=== PATIENT | female | born 1970 | race African-American/Black ===

== ENCOUNTER 2024-06-30 08:58 | Emergency (ER) | payer OTHER, SELFPAY ==
--- NOTE | ~2024-06-30 | XR_ITS ---
EXAMINATION: XR chest 2V 06/30/2024 09:23 INDICATION: Chest pain PROCEDURE: 2 view chest COMPARISON: No prior studies for comparison. FINDINGS: The lungs are clear. The cardiomediastinal silhouette is within normal limits. There are no pleural effusions. There is no pneumothorax suspected. IMPRESSION: 1: NO ACUTE CARDIOPULMONARY DISEASE. Reviewed, dictated and finalized at location A.
--- NOTE | 2024-06-30 09:04 | ECG_ITS ---
Test Date: 2024-06-30 09:07:04 Measurements Intervals [place] Rate: 76 P: 6 OK: 155 QRS: -12 QRSD: 77 T: 57 QT: 367 QTc: 415 Interpretive Statements SINUS RHYTHM NONSPECIFIC T-WAVE ABNORMALITY No previous ECG available for comparison Electronically Signed On 07-01-2024 18:57:39 CDT by Nina Villalobos
[2024-06-30 09:05] VITALS: BP 137/90; PULSE 78; RESP 18; TEMP 36.5; O2SAT 99
--- NOTE | 2024-06-30 09:14 | ED_ITS ---
HPI - Chest Pain General Chief Complaint: Chest Pain Stated Complaint: CP Source: patient Mode of arrival: ambulatory Limitations: no limitations History of Present Illness HPI narrative: Patient is a 54 y/o female who presents to the ED via EMS with report of chest pain. Patient reports she woke up around 4am this morning to take her dog out when she developed pain in her R sided chest. Reports pain is worse with movement, twisting, deep breaths. Described as a sharp stabbing pain. Has not taken anything for pain. Denies feeling short of breath. Denies history of similar pain. Denies pain or swelling in legs. Denies recent cough or cold symptoms. Denies previous history of heart disease. Is on medication for HTN, HLD. Former smoker. Related Data Allergies Allergy/AdvReac Type Severity Reaction Status Date / Time acetaminophen (From Percocet) Allergy Intermediate Hives Verified 06/30/24 09:09 oxycodone (From Percocet) Allergy Intermediate Hives Verified 06/30/24 09:09 Review of Systems 2 Review of Systems: All systems reviewed & are unremarkable except as noted in HPI. All systems reviewed & are unremarkable except as noted in HPI and below Exam 2 Narrative: GENERAL: Mildly uncomfortable appearing, morbidly obese with BMI of 43.5, non- toxic, in no acute distress. HEAD: Normocephalic, atraumatic. RESPIRATORY: Airway patent, respirations nonlabored. Clear to auscultation bilaterally, no rales, rhonchi, wheezing. No focal lung sounds. CARDIOVASCULAR: Regular rate and rhythm without murmurs, rubs, or gallops. MUSCULOSKELETAL: Moves all extremities. No gross deformities. Reproducible tenderness to palpation over right upper anterior chest wall, just lateral from sternum in 3rd through 5th intercostal spaces. No midsternal chest wall tenderness to palpation. SKIN: Warm, dry, normal color. NEURO: A&O X3. Speech clear. No ataxic movements. PSYCHIATRIC: Appropriate mood and affect. Normal interaction. Course Vital Signs Vital signs: Vital Signs Temperature 97.7 F 06/30/24 09:05 Pulse Rate 78 06/30/24 09:05 Respiratory Rate 18 06/30/24 09:05 Blood Pressure 137/90 06/30/24 09:05 Pulse Oximetry 99 06/30/24 09:05 Oxygen Delivery Room Air 06/30/24 09:05 Temperature 97.7 F 06/30/24 09:05 Pulse Rate 82 06/30/24 10:30 Respiratory Rate 12 06/30/24 10:30 Blood Pressure 130/84 06/30/24 10:30 Pulse Oximetry 95 06/30/24 10:30 Oxygen Delivery Room Air 06/30/24 09:05 MDM - Chest Pain MDM Narrative Medical decision making narrative: Patient presented to ED with right-sided chest pain that began this morning. Vital signs are stable upon arrival. EKG without concerning ischemic changes. Pain seems most likely musculoskeletal. Worse with movement or taking deep breath, reproducible chest wall tenderness along R upper chest wall on exam. Baseline Troponin is undetectable. Chest x-ray is clear. Basic laboratory studies are otherwise unremarkable. D-dimer WNL. 3 hour troponin also undetectable. Very low suspicion for ACS at this time. HEART score =3 based on age and RFs (HTN, HLD, BMI), however again pain does not seem typical of coronary disease/angina. Patient feeling improved with supportive therapy in the ED. Discussed likelihood of musculoskeletal etiology, costochondritis. Feel she is safe for discharge home at this time. Will prescribe muscle relaxers and lidocaine patches for home use. Advised close follow-up with PCP for further evaluation. Given strict return precautions. She agrees with plan. Discharged in stable condition. Medical Records Data Attestation: I reviewed the patient's medical records. Lab Data Attestation: I reviewed the patient's lab results. 06/30/24 09:12 06/30/24 09:12 Labs: Lab Results 06/30/24 06/30/24 06/30/24 Range/Units 09:12 09:12 11:52 WBC 8.4 (4.5-10.0) K/mm3 RBC 4.44 (4.2-5.4) M/mm3 Hgb 12.5 (12.0-15.0) g/dL Hct 40.0 (37.0-47.0) % MCV 90.1 (80-100) fl MCH 28.2 (26-34) pg MCHC 31.3 L (32-36) g/dl RDW 12.9 (11.5-14.5) % Plt Count 277 (150-375) k/mm3 MPV 8.7 (7.4-10.4) fl Immature Gran % (Auto) 0.2 (0-0.5) % Neut % (Auto) 60.3 (45.5-73.1) % Lymph % (Auto) 32.5 (18.3-44.2) % [place] % (Auto) 4.8 (2.6-8.5) % Eos % (Auto) 2.0 (0-4.4) % Baso % (Auto) 0.2 (0.2-1.2) % Lymph # (Auto) 2.71 (0.9-3.2) K/mm3 [place] # (Auto) 0.4 (0.1-0.6) K/mm3 Eos # (Auto) 0.2 (0-0.3) K/mm3 Baso # (Auto) 0.0 (0.0-0.1) K/mm3 Abs Immat Gran (auto) 0.02 (0.00-0.031) K/mm3 Absolute Neuts (auto) 5.0 (1.3-6.7) K/mm3 Absolute Nucleated RBC 0.000 (0.0-0.012) K/mm3 Nucleated RBC % 0.0 (0.0-0.2) % PT 12.7 (11.1-14.7) Seconds INR 0.9 APTT 20.0 L (22.3-36.8) Seconds D-Dimer 0.30 Cancelled (<0.48) ug/mL Sodium 141 (137-145) mmol/L Potassium 3.8 (3.4-5.0) mmol/L Chloride 107 (98-107) mmol/L Carbon Dioxide 24 (22-30) mmol/L Anion Gap 10 (4-12) mmol/L BUN 10 (7-17) mg/dL Creatinine 0.86 (0.7-1.0) mg/dL Estim Creat Clear Calc 76 ml/min Estimated GFR > 60 (59 - ) Glucose 125 H (65-110) mg/dL Calcium 9.2 (8.4-10.2) mg/dL Total Bilirubin 0.3 (0.2-1.3) mg/dL AST 26 (14-36) U/L ALT 21 (6-35) U/L Alkaline Phosphatase 92 (38-126) U/L Troponin I < 0.012 < 0.012 (0.000-0.034) ng/mL NT-Pro-B Natriuret Pep 63 (19.9-100) pg/mL Total Protein 8.0 (6.3-8.2) g/dL Albumin 4.1 (3.5-5.1) g/dL Lipase 295 (23-300) U/L Imaging Data Attestation: I personally reviewed and interpreted this imaging study as follows: Radiologist's impression: ITS Impressions Chest X-Ray 06/30/24 09:26 IMPRESSION: 1: NO ACUTE CARDIOPULMONARY DISEASE. ECG Data EKG #1: Attestation: I personally reviewed and interpreted this ECG as follows: ECG completion date: 06/30/24 ECG completion time: 09:07 EKG Interpretation: normal rate (76), sinus rhythm and no ST changes Discharge Plan Discharge Clinical Impression: Right-sided chest wall pain Patient Disposition: Home Condition: Stable Instructions: Antibiotic Form, Costochondritis (ED), Chest Wall Pain (ED) Additional Instructions: Your workup here was reassuring against a cardiac cause of your chest pain. Your pain is likely muscular. Continue Tylenol, ibuprofen as needed for pain. Utilize lidocaine patches to area of pain. You may also use ice to your chest wall. Take muscle relaxers as needed and prescribed. Recommend taking these at night as they may cause sedation. Do not drive, operate heavy machinery, drink alcohol while on muscle relaxers as this may cause further sedation. Follow-up with your primary care doctor for further evaluation. Return to the ED for worsening or severe pain, shortness of breath, pain or swelling in legs, unable to keep down food or drink, or any other symptoms of concern. Patient Language: Portuguese Prescriptions: New lidocaine 5 % adhesive patch,medicated 1 patch topical DAILY Qty: 15 0RF Rx Instructions: leave on most painful area for up to 12 hrs cyclobenzaprine 5 mg tablet 5 mg PO TID PRN (Reason: muscle spasm) Qty: 15 0RF Follow-up/Referrals: PHYSICIAN NOT ON STAFF,NONSTAFF [Non-Staff] - Time of Disposition: 12:47 Quality HEART score for chest pain patients History: slightly suspicious ECG: normal Age: > 45 and < 65 years Risk factors: > or = to 3 risk factors of atherosclerotic disease Troponin: < or = to 1x normal limit Heart score: 3
[2024-06-30 09:19] VITALS: PULSE 79
[2024-06-30 09:19] LABS: Basophils Percent Auto 0.2 % (0.2-1.2); Eosinophils Absolute Auto 0.2 K/mm3 (0-0.3); Hemoglobin 12.5 g/dL (12.0-15.0); Immature Granulocyte Absolute 0.02 K/mm3 (0.00-0.031); Immature Granulocyte Percent A 0.2 % (0-0.5); Lymphocytes Absolute Auto 2.71 K/mm3 (0.9-3.2); Lymphocytes Percent Auto 32.5 % (18.3-44.2); Mean Corpuscular HGB Conc 31.3 g/dl (32-36); Mean Corpuscular Hemoglobin 28.2 pg (26-34); Mean Corpuscular Volume 90.1 fl (80-100); Mean Platelet Volume 8.7 fl (7.4-10.4); Monocytes Absolute Auto 0.4 K/mm3 (0.1-0.6); Monocytes Percent Auto 4.8 % (2.6-8.5); Neutrophils Percent Auto 60.3 % (45.5-73.1); Platelet Count Result 277 k/mm3 (150-375); Red Blood Count 4.44 M/mm3 (4.2-5.4); Red Cell Distribution Width 12.9 % (11.5-14.5); White Blood Count 8.4 K/mm3 (4.5-10.0)
[2024-06-30] MEDS: Please add drug allergy info to patient profile. 1 EACH XX (09:20)
[2024-06-30 09:30] LABS: INR 0.9; Prothrombin Time 12.7 Seconds (11.1-14.7)
[2024-06-30] MEDS: LIDOCAINE 5% PATCH 1 PATCH TRANSDERM (09:34)
[2024-06-30] MEDS: CYCLOBENZAPRINE HCL 5 MG TABLET PO (09:34)
[2024-06-30] MEDS: ASPIRIN 81 MG CHEWABLE TABLET 324 MG PO (09:34)
[2024-06-30 09:36] LABS: Alanine Aminotransferase 21 U/L (6-35); Albumin Level 4.1 g/dL (3.5-5.1); Alkaline Phosphatase 92 U/L (38-126); Anion Gap 10 mmol/L (4-12); Aspartate Amino Transferase 26 U/L (14-36); Bilirubin,Total 0.3 mg/dL (0.2-1.3); Blood Urea Nitrogen 10 mg/dL (7-17); Calcium 9.2 mg/dL (8.4-10.2); Carbon Dioxide 24 mmol/L (22-30); Chloride 107 mmol/L (98-107); Estimated CRCL calculation 76 ml/min; Estimated Glomerular Filt Rate > 60; Glucose 125 mg/dL (65-110); Lipase 295 U/L (23-300); Potassium 3.8 mmol/L (3.4-5.0); Sodium 141 mmol/L (137-145)
--- OUTSIDE RECORDS SUMMARY | 2024-06-30 09:44 | XMS_ITS | Referral Summary ---
Author Organization [facility] Address [address] [place] [address] Care Team Providers Care Printing Estimator Name Role Phone George Harris MD, Deandre Styles Unavailable [phone] Neo RodriguezM Unavailable [phone] Shadia Aguilar MD Unavailable [phone] Macarena Donald MD Unavailable [phone] Esvin Ventura MD Primary Care Provider Shaka Carey MD Unavailable [phone] Encounters Date Type Department Care Team Description 06/10/2024 Telephone [facility] Primary Care at [address] [address] Esvin Ventura MD PA for Tramadol from Last 3 Months Allergies Active Allergy Reactions Criticality Noted Date Comments Hydrocodone Hives Reaction: Hives, Hydrocodone-Acetaminophen Oxycodone Hives,Itching Medium 05/13/2021 Medications cholecalciferol (VITAMIN D-3) 58539 unit tablet Take 1 tablet by mouth 2 (Two) Times a week 110 tablet 02/01/20 21 Active famotidine (PEPCID) 40 mg tabletIndications: Chronic cough Take 1 tablet by mouth nightly 90 tablet 11/08/19 23 Active lisinopril-hydroCH LOROthiazide (ZESTORETIC) 20-12.5 mg per tabletIndications: hypertension Take 1 tablet by mouth daily 180 tablet 3 12/17/19 23 Active escitalopram (LEXAPRO) 20 mg tabletIndications: Generalized anxiety disorder,Moderate episode of recurrent major depressive disorder (HCC) Take 1 tablet (20 mg total) by mouth daily 90 tablet 3 10/26/19 24 Active hydrOXYzine (ATARAX) 25 mg tabletIndications: Generalized anxiety disorder TAKE 1 TABLET BY MOUTH EVERY 8 HOURS NEEDED FOR ANXIETY. 300 tablet 1 02/22/20 24 Active atorvastatin (LIPITOR) 40 mg tabletIndications: Mixed hyperlipidemia Take 1 tablet (40 mg total) by mouth daily 90 tablet 3 03/29/19 25 Active amLODIPine (NORVASC) 5 mg tabletIndications: Hypertension, essential Take 1 tablet (5 mg total) by mouth daily 90 tablet 1 03/29/19 25 026 Active Breo Ellipta 100-25 mcg/dose diskus inhalerIndications :Chronic cough INHALE 1 PUFF DAILY RINSE MOUTH WITH WATER AFTER USE. DO NOT SWALLOW. 60 each 2 04/28/19 25 Active traMADoL (ULTRAM) 50 mg tabletIndications: Chronic right-sided low back pain with right-sided sciatica TAKE 1 TABLET (50 MG TOTAL) BY MOUTH 2 (TWO) TIMES A DAY NEEDED FOR PAIN FOR PAIN 60 tablet 06/10/19 25 Active cyclobenzaprine (FLEXERIL) 10 mg tabletIndications: Chronic right-sided low back pain with right-sided sciatica TAKE 1 TABLET BY MOUTH DAILY NEEDED FOR MUSCLE SPASMS. 90 tablet 06/25/19 25 Active traMADoL (ULTRAM) 50 mg tabletIndications: Chronic right-sided low back pain with right-sided sciatica Take 1 tablet (50 mg total) by mouth 2 (two) times a day as needed for pain for pain 60 tablet 02/05/20 24 025 Discontinued cyclobenzaprine (FLEXERIL) 10 mg tabletIndications: Chronic right-sided low back pain with right-sided sciatica TAKE 1 TABLET BY MOUTH DAILY NEEDED FOR MUSCLE SPASMS. 90 tablet 02/22/20 24 025 Discontinued Active Problems Problem Noted Date Diagnosed Date Tinnitus, bilateral 06/26/2023 Assessment & Plan (06/26/2023 8:41 AM CDT): - seen by ENT provider in April of 2023 - had hearing evaluation for bilateral tinnitus - also evaluated for dry skin that caused itching ears - told to follow-up on as needed was diagnosed with dysfunction of eustachian tubes History of fasciotomy 06/26/2023 Overview (06/26/2023): Hx of left plantar fasciotomy and Hx of left tarsal tunnel syndrome surgery Assessment & Plan (06/26/2023 8:41 AM CDT): - has history of left plantar fasciotomy and history of left tarsal tunnel surgery - done by Podiatry-Dr. Rodriguez - used to be on Lyrica/pregabalin for neuropathy - no longer an ongoing issue History of syncope 06/26/2023 Assessment & Plan (06/26/2023 8:44 AM CDT): - patient reports history of syncope with onset over 15 years ago, reports at the time she was extensively evaluated without any significant findings - she reports triggers are usually she feels very hot where she would feel sweaty and may pass out, also she does not eat then she will be shaky - there is no history of diabetes or prediabetes, heart disorder and has had a heart monitor as well as echocardiogram in the past - last episode was 3-4 years ago - safe to proceed with plasma donation Lab Results Component Value Date HGBA1C 5.6 04/02/2022 Benign paroxysmal positional vertigo due to bilateral vestibular disorder 02/12/2023 Assessment & Plan (02/12/2023 1:33 PM MONITORING SPECIALIST): May try meclizine for vertigo. She also has hydroxyzine for anxiety and I told her if the meclizine isn't helpful she could try the hydroxyzine. Encouraged adequate fluid intake. Take care walking and doing activities while dizzy. If symptoms do not resolve on their own then discussed Miguel Angel-Hallpike whole maneuvers through referral to either ENT, physical therapy or sometimes a chiropractor performs these. Patient voiced understanding and she may talked to a chiropractor that she is seen in the past S/P cholecystectomy 04/03/2022 S/P endometrial ablation 04/03/2022 Preventative health care 02/13/2022 Assessment & Plan (09/16/2022 4:56 PM CDT): - Acute/new or worsening conditions: worsening chronic cough, dyslipidemia - Mental health: stable mental health, has hx of depression which is well controlled - Dental health: up to date, Recommend regular dental care and cleaning. Discussed importance of regular tooth brushing, flossing, and dental visits. - Nutrition: Stressed importance of moderation in sodium/caffeine intake, saturated fat and cholesterol, caloric balance, sufficient intake of fresh fruits, vegetables - Exercise: Stressed the importance of regular exercise as tolerated - Immunizations: Age and sex appropriate immunizations reviewed - Cervical Cancer screening: up to date - Breast Cancer screening: up to date - Colon cancer screening: up to date - Lung cancer screening: n/a - control: post-menopausal Assessment & Plan (02/13/2022 12:29 PM MONITORING SPECIALIST): Patient has been noted to have mcfp current use of NSAIDs. Discussed that NSAIDs have been associated with: - increase in risk of GI bleeding and peptic ulcer - cause fluid retention and worsen congestive heart failure - worsen kidney function I recommend the following: - Using the lowest dose for the shortest possible duration - if possible switch NSAID with a different form of medication - Review patient s renal function and adjust dose accordingly - Adding a proton pump inhibitor (PPI) for GI protection for NSAID therapy >7 days - avoid using prednisone at same time as NSAIDs COPD (chronic obstructive pulmonary disease) Assessment & Plan (03/29/2024 2:14 PM MONITORING SPECIALIST): - chronic, well controlled - was chronic smoker, has cut down on her smoking and switched to vaping, cutting down on vaping - using albuterol inhaler 2-3 times a day - currently Breo Elipta 100-25 daily with big improvement - seh has been taking Zyrtec and flonase - has had Chest XR with normal findings in the past - obtained PFT with result as shown below The current medical regimen is effective; continue present plan and medications. PFT 10/22 The patient has adequate technique for interpretation. The patient has a moderate obstructive ventilatory defect which improves following bronchodilators. The patient has a mild restrictive ventilatory defect. The patient has a normal diffusing capacity. FEV1/FVC % (normal >70%) - FEV1 % ( normal >80%) - FVC (normal >80%) - TLC (normal between 80-120%) - DLCO (normal <80%) - In the presence of a low FEV1/FVC, GOLD 1: Mild (FEV1 >=80% predicted) GOLD 2: Moderate (50% predicted <=FEV1 <80% predicted) GOLD 3: Severe (30% predicted <=FEV1 <50% predicted) GOLD 4: Very severe (FEV1 <30% predicted) Assessment & Plan (04/23/2023 8:23 AM MONITORING SPECIALIST): - chronic, much better since she has been on inhaler - was worse at night as well - was chronic smoker, has cut down on her smoking and switched to vaping, cutting down on vaping - using albuterol inhaler 2-3 times a day - currently Breo Elipta 100-25 daily with big improvement - [facility] has been taking Zyrtec and flonase - has had Chest XR with normal findings in the past - obtained PFT with result as shown below - continue current therapy PFT 10/22 The patient has adequate technique for interpretation. The patient has a moderate obstructive ventilatory defect which improves following bronchodilators. The patient has a mild restrictive ventilatory defect. The patient has a normal diffusing capacity. FEV1/FVC % (normal >70%) - FEV1 % ( normal >80%) - FVC (normal >80%) - TLC (normal between 80-120%) - DLCO (normal <80%) - In the presence of a low FEV1/FVC, GOLD 1: Mild (FEV1 >=80% predicted) GOLD 2: Moderate (50% predicted <=FEV1 <80% predicted) GOLD 3: Severe (30% predicted <=FEV1 <50% predicted) GOLD 4: Very severe (FEV1 <30% predicted) Assessment & Plan (12/16/2022 8:24 AM CDT): - chronic, persistent/worse - worse at night as well - taking Famotidine 40 mg nighty for 1 months to see if symptoms improve - was chronic smoker, has cut down on her smoking and switched to vaping, cutting down on vaping - using albuterol inhaler 2-3 times a day - seh has been taking Zyrtec and flonase - has had Chest XR with normal findings in the past - obtained PFT with result as shown below 10/22 - started Anoro for COPD --> but found it to be too expensive 130 dollars. Eventually states it made her cough more - start Symbicort, script sent in PFT 10/22 The patient has adequate technique for interpretation. The patient has a moderate obstructive ventilatory defect which improves following bronchodilators. The patient has a mild restrictive ventilatory defect. The patient has a normal diffusing capacity. FEV1/FVC % (normal >70%) - FEV1 % ( normal >80%) - FVC (normal >80%) - TLC (normal between 80-120%) - DLCO (normal <80%) - In the presence of a low FEV1/FVC, GOLD 1: Mild (FEV1 >=80% predicted) GOLD 2: Moderate (50% predicted <=FEV1 <80% predicted) GOLD 3: Severe (30% predicted <=FEV1 <50% predicted) GOLD 4: Very severe (FEV1 <30% predicted) Assessment & Plan (09/16/2022 5:08 PM CDT): - chronic, persistent/worse - worse at night as well - try Famotidine 40 mg nighty for 1 months to see if symptoms improve - was chronic smoker, has cut down on her smoking and switched to vaping, cutting down on vaping - seh has been taking Zyrtec and flonase - has had Chest XR with normal findings in the past - obtain PFT if symptoms do not resolve or improve with pepcid use, order placed Assessment & Plan (02/13/2022 12:32 PM MONITORING SPECIALIST): - chronic, improved - almost 6 months - tried pepcid 20 mg BID - was chronic smoker, has cut down on her smoking for almost 3 weeks now, vaping instead - has seen big improvement in her cough - obtain Chest Xr Uterine mass 02/13/2022 Assessment & Plan (05/15/2022 8:17 AM CDT): - chronic, note din past on 2017 - obtained placed for US Transvaginal and then followed it with Abdomen and Pelvis CT - intermittent RLQ pain - ordered - US pelvis endovaginal to be done in 6 months with diagnosis of uterine mass. US Pelvis endovaginal 04/2021 IMPRESSION: 1. Assessment is somewhat limited partially related to the body habitus. 2. Endometrium is not seen, there is a history of endometrial ablation. There is a mass of the upper uterus near the fundus presumably a fibroid. Please ensure there are no worrisome clinical features such as postmenopausal bleeding. Consider a 6 month ultrasound follow-up for reassessment. 3. Neither ovary could be demonstrated for assessment. Limited findings, ordering CT Abd Pelvis with contrast CT Abd/Pelvis W Contrast 04/24 FINDINGS: LOWER CHEST: Lung bases are clear. Heart size normal. No effusion. LIVER/BILIARY: Mild hepatic steatosis. Biliary tree normal in caliber. GALLBLADDER: Absent. SPLEEN: Normal. PANCREAS: Normal. ADRENAL GLANDS: Normal. KIDNEYS/URINARY TRACT: Unremarkable. GI: Stomach and small bowel appear normal. Colon and appendix unremarkable. ADDENDUM: This addendum report supersedes the original report dated 04/23/2022 Uterus and ovaries appear normal. OTHER ABDOMINAL/PELVIS: Major vascular structures are grossly patent and normal in caliber. No enlarged lymph node or free fluid. MSK: [id number] disc disease and facet arthropathy. Hip and SI joint arthrosis. IMPRESSION: 1. No abnormality identified of the pelvic viscera within limits of CT visualization. 2. Mild hepatic steatosis. CT Abd/Pelvis 11/2017 IMPRESSION: 1. NO ACUTE INTRA-ABDOMINAL OR INTRAPELVIC ABNORMALITY. 2. 18 MM SIMPLE RIGHT OVARIAN CYST AND 15 MM SIMPLE LEFT OVARIAN CYST. 3. CHOLECYSTECTOMY. 4. FATTY INFILTRATION OF THE LIVER.. Assessment & Plan (02/13/2022 12:49 PM MONITORING SPECIALIST): - chronic, note din past on 2017 - recheck, order placed for US Transvaginal - intermittent RLQ pain CT Abd/Pelvis 11/2017 IMPRESSION: 1. NO ACUTE INTRA-ABDOMINAL OR INTRAPELVIC ABNORMALITY. 2. 18 MM SIMPLE RIGHT OVARIAN CYST AND 15 MM SIMPLE LEFT OVARIAN CYST. 3. CHOLECYSTECTOMY. 4. FATTY INFILTRATION OF THE LIVER.. Fatty liver 02/13/2022 Assessment & Plan (04/23/2023 8:20 AM MONITORING SPECIALIST): - chronic, noted in past as shown below - has morbid obesity, Body mass index is 45.88 kg/m . - obtained US liver as shown below - most recent LFTs as shown below - test result as shown below - discussed importance of weight loss - will continue to monitor Fibro test -acti test 12/22 Fibro test Stage F0 - no fibrosis Acti test Grade A0 - no activity US Liver 04/2022 FINDINGS: LIVER: The liver is increased in echogenicity. Liver measures 13 cm. No focal hepatic lesions are seen. Antegrade direction of flow shown in the main portal vein. GALLBLADDER: Surgically absent. BILIARY: There is no intrahepatic biliary ductal dilatation. The common bile duct measures 0.3 cm in diameter. RIGHT KIDNEY: Right kidney is 10.3 cm in length. There is no hydronephrosis. The echogenicity is normal. IMPRESSION: 1. Hepatic steatosis. 2. Cholecystectomy. 3. Otherwise negative right upper quadrant ultrasound. CT Abd/Pelvis 11/2017 IMPRESSION: 1. NO ACUTE INTRA-ABDOMINAL OR INTRAPELVIC ABNORMALITY. 2. 18 MM SIMPLE RIGHT OVARIAN CYST AND 15 MM SIMPLE LEFT OVARIAN CYST. 3. CHOLECYSTECTOMY. 4. FATTY INFILTRATION OF THE LIVER.. Most recent LFTs as shown below Lab Results Component Value Date ALT 18 02/12/2023 AST 21 02/12/2023 ALKPHOS 108 02/12/2023 BILITOT 0.3 02/12/2023 Lab Results Component Value Date INR 1.00 12/16/2022 INR 1.11 10/05/2018 Assessment & Plan (12/16/2022 8:27 AM CDT): - chronic, noted in past as shown below - has morbid obesity, Body mass index is 43.16 kg/m . - obtained US liver as shown below - most recent LFTs as shown below - order placed for CMP and Fibro Test-Acti - discussed importance of weight loss US Liver 04/2022 FINDINGS: LIVER: The liver is increased in echogenicity. Liver measures 13 cm. No focal hepatic lesions are seen. Antegrade direction of flow shown in the main portal vein. GALLBLADDER: Surgically absent. BILIARY: There is no intrahepatic biliary ductal dilatation. The common bile duct measures 0.3 cm in diameter. RIGHT KIDNEY: Right kidney is 10.3 cm in length. There is no hydronephrosis. The echogenicity is normal. IMPRESSION: 1. Hepatic steatosis. 2. Cholecystectomy. 3. Otherwise negative right upper quadrant ultrasound. CT Abd/Pelvis 11/2017 IMPRESSION: 1. NO ACUTE INTRA-ABDOMINAL OR INTRAPELVIC ABNORMALITY. 2. 18 MM SIMPLE RIGHT OVARIAN CYST AND 15 MM SIMPLE LEFT OVARIAN CYST. 3. CHOLECYSTECTOMY. 4. FATTY INFILTRATION OF THE LIVER.. Most recent LFTs as shown below Lab Results Component Value Date ALT 22 04/02/2022 AST 20 04/02/2022 ALKPHOS 105 04/02/2022 BILITOT 0.6 04/02/2022 Lab Results Component Value Date INR 1.11 10/05/2018 Assessment & Plan (05/15/2022 8:14 AM CDT): - chronic, noted in past as shown below - has morbid obesity, There is no height or weight on file to calculate BMI. - obtained US liver as shown below - most recent LFTs as shown below US Liver 04/2022 FINDINGS: LIVER: The liver is increased in echogenicity. Liver measures 13 cm. No focal hepatic lesions are seen. Antegrade direction of flow shown in the main portal vein. GALLBLADDER: Surgically absent. BILIARY: There is no intrahepatic biliary ductal dilatation. The common bile duct measures 0.3 cm in diameter. RIGHT KIDNEY: Right kidney is 10.3 cm in length. There is no hydronephrosis. The echogenicity is normal. IMPRESSION: 1. Hepatic steatosis. 2. Cholecystectomy. 3. Otherwise negative right upper quadrant ultrasound. CT Abd/Pelvis 11/2017 IMPRESSION: 1. NO ACUTE INTRA-ABDOMINAL OR INTRAPELVIC ABNORMALITY. 2. 18 MM SIMPLE RIGHT OVARIAN CYST AND 15 MM SIMPLE LEFT OVARIAN CYST. 3. CHOLECYSTECTOMY. 4. FATTY INFILTRATION OF THE LIVER.. Most recent LFTs as shown below Lab Results Component Value Date ALT 22 04/02/2022 AST 20 04/02/2022 ALKPHOS 105 04/02/2022 BILITOT 0.6 04/02/2022 Lab Results Component Value Date INR 1.11 10/05/2018 Assessment & Plan (02/13/2022 12:48 PM MONITORING SPECIALIST): - chronic, noted in past as shown below - has morbid obesity, Body mass index is 41.69 kg/m . - recheck, order placed for US liver CT Abd/Pelvis 11/2017 IMPRESSION: 1. NO ACUTE INTRA-ABDOMINAL OR INTRAPELVIC ABNORMALITY. 2. 18 MM SIMPLE RIGHT OVARIAN CYST AND 15 MM SIMPLE LEFT OVARIAN CYST. 3. CHOLECYSTECTOMY. 4. FATTY INFILTRATION OF THE LIVER.. Lab Results Component Value Date ALT 15 09/09/2021 AST 19 09/09/2021 ALKPHOS 146 (H) 09/09/2021 BILITOT 0.3 09/09/2021 Stress incontinence in female 02/13/2022 Palpitations 05/20/2021 Assessment & Plan (12/08/2023 12:15 PM CDT): Resolved. Assessment & Plan (02/13/2022 12:35 PM MONITORING SPECIALIST): - chronic, intermittent - saw Cardiology and reassurance was provided - told to limit caffeine intake, has known anxiety 2D echocardiogram 10/2021 - EF 60%, mild MR/TR - continue current management per cardiology - 48 hours monitor 04/2021 Conclusions: 1. Predominant rhythm is normal sinus rhythm with a minimum heart rate of 69 beats per minute in sinus and a maximum heart rate of 149 beats per minute also in sinus. 2. Heart rate and rate variability is appropriate. 3. No prolonged pauses. 4. Rare PACs with a total of 12 PACs amounting to less than 0.01% of total beats. 5. There were 28 patient activated events for lightheadedness and they were noted to be in sinus rhythm ranging in heart rate from 88-130 beats per minute with no significant findings. Lab Results Component Value Date TSH 1.51 09/09/2021 Assessment & Plan (09/10/2021 7:47 AM CDT): HPI: Condition is stable , they are not nearly as bad. They are sporadic. Sees Dr. Donald next week. A&P: Discussed/ordered labs, encouraged healthy, low carbohydrate lifestyle and at least 150min/week of exercise, continue follow-up with Dr. Donald cardiology Continue decreasing caffeine Assessment & Plan (05/20/2021 7:29 AM CDT): HPI: Condition is improving, but not at goal. Patient reports the palpitations occur split second, but have been getting better. Reports she trialed off caffeine with not much improvement, but is using it again. A&P: Discussed/ordered labs, encouraged healthy, low carbohydrate lifestyle and at least 150min/week of exercise. Push water intake. Follow-up with Dr. Donald cardiology as directed. Reports she has an appointment in 4 months. Smokes tobacco daily 03/06/2021 Assessment & Plan (04/23/2023 8:22 AM MONITORING SPECIALIST): Social History Tobacco Use Smoking Status Former Current packs/day: 0.00 Average packs/day: 0.5 packs/day for 34.6 years (17.3 ttl pk-yrs) Types: Cigarettes, Vaping Start date: 06/18/1987 Quit date: 01/15/2022 Years since quittin.2 Smokeless Tobacco Never - chronic condition, not at goal - continue with abstinence from tobacco smoking - currently vapes Assessment & Plan (02/13/2022 12:21 PM MONITORING SPECIALIST): Social History Tobacco Use Smoking Status Every Day Packs/day: 0.50 Years: 30.00 Pack years: 15.00 Types: Cigarettes Start date: 03/02/1982 Smokeless Tobacco Never - chronic condition, not at goal - assessed patient readiness for tobacco smoking cessation - discussed the importance of tobacco smoking cessation with goal of being tobacco free Assessment & Plan (09/10/2021 7:49 AM CDT): Patient aware of risks of tobacco use up to and including Patient does have interest in quitting at this time Has smoked about half pack per day for 32 years Down to 3-4 per day Assessment & Plan (03/06/2021 7:32 AM MONITORING SPECIALIST): Patient aware of risks of tobacco use up to and including Patient does not have interest in quitting at this time Smokes about 1/2ppd x 32 yrs Family history of abdominal aortic aneurysm (AAA ) 03/06/2021 Overview (03/06/2021): Mother and grandfather both have AAA Mothers found at age 66 or 67 Assessment & Plan (09/10/2021 7:47 AM CDT): Encouraged tobacco cessation Keep blood pressure under tight control Wt loss will start monitoring at age 60 Assessment & Plan (03/06/2021 7:36 AM MONITORING SPECIALIST): Encouraged tobacco cessation Keep bp under tight control Will start monitoring at age 60 Hypertension, essential 07/12/2019 Assessment & Plan (03/29/2024 2:56 PM MONITORING SPECIALIST): BP Readings from Last 3 Encounters: 03/29/24 132/96 12/08/23 130/84 10/26/23 124/82 - chronic condition, worse - currently on Lisinopril-HCTZ 20-12.5 mg daily , start Amlodipine 5 mg daily - follow low salt diet - monitor bp regularly and to send us BP logs in 5 days Lab Results Component Value Date GLUCOSE 94 03/26/2024 CALCIUM 9.7 03/26/2024 SODIUM 139 03/26/2024 POTASSIUM 4.0 03/26/2024 CO2 25 03/26/2024 CHLORIDE 103 03/26/2024 BUNSER 9 03/26/2024 CREATININE 0.99 03/26/2024 Assessment & Plan (12/08/2023 12:15 PM CDT): Controlled with lisinopril. No changes recommended. Assessment & Plan (10/26/2023 10:17 AM CDT): BP Readings from Last 3 Encounters: 10/26/23 124/82 07/02/23 120/88 06/26/23 150/100 - chronic condition, well controlled - currently on Lisinopril-HCTZ 20-12.5 mg daily - follow low salt diet - monitor bp regularly - continue current management Lab Results Component Value Date GLUCOSE 96 02/12/2023 CALCIUM 9.5 02/12/2023 SODIUM 137 02/12/2023 POTASSIUM 4.3 02/12/2023 CO2 26 02/12/2023 CHLORIDE 103 02/12/2023 BUNSER 8 02/12/2023 CREATININE 0.99 02/12/2023 Assessment & Plan (06/26/2023 8:21 AM CDT): BP Readings from Last 3 Encounters: 06/26/23 150/100 04/23/23 122/90 02/12/23 124/78 - chronic condition, well controlled - currently on Lisinopril-HCTZ 20-12.5 mg daily - follow low salt diet - monitor bp regularly - continue current management Lab Results Component Value Date GLUCOSE 96 02/12/2023 CALCIUM 9.5 02/12/2023 SODIUM 137 02/12/2023 POTASSIUM 4.3 02/12/2023 CO2 26 02/12/2023 CHLORIDE 103 02/12/2023 BUNSER 8 02/12/2023 CREATININE 0.99 02/12/2023 Assessment & Plan (04/23/2023 8:16 AM MONITORING SPECIALIST): BP Readings from Last 3 Encounters: 04/23/23 122/90 02/12/23 124/78 12/16/22 102/76 - chronic condition, well controlled - currently on Lisinopril-HCTZ 20-12.5 mg daily - follow low salt diet - monitor bp regularly - continue current management Lab Results Component Value Date GLUCOSE 96 02/12/2023 CALCIUM 9.5 02/12/2023 SODIUM 137 02/12/2023 POTASSIUM 4.3 02/12/2023 CO2 26 02/12/2023 CHLORIDE 103 02/12/2023 BUNSER 8 02/12/2023 CREATININE 0.99 02/12/2023 Assessment & Plan (12/16/2022 8:18 AM CDT): BP Readings from Last 3 Encounters: 12/16/22 102/76 12/01/22 102/67 09/16/22 152/92 - chronic condition, well controlled - currently on Lisinopril-HCTZ 20-12.5 mg BID, changed from daily to BID on last visit ---> change back to daily at this time - follow low salt diet - monitor bp regularly - continue current management Lab Results Component Value Date GLUCOSE 98 04/02/2022 CALCIUM 10.1 04/02/2022 SODIUM 140 04/02/2022 POTASSIUM 4.2 04/02/2022 CO2 26 04/02/2022 CHLORIDE 105 04/02/2022 BUNSER 9 04/02/2022 CREATININE 1.00 04/02/2022 Assessment & Plan (09/16/2022 5:07 PM CDT): BP Readings from Last 3 Encounters: 09/16/22 136/94 09/08/22 119/72 05/19/22 142/90 - chronic condition, worse, elevated on this visit, confirmed with repeat measurement - currently on Lisinopril-HCTZ 20-12.5 mg daily, currently taking it at night time --> change to BID - follow low salt diet - monitor bp regularly, send BP logs in 2 weeks - continue current management Lab Results Component Value Date GLUCOSE 98 04/02/2022 CALCIUM 10.1 04/02/2022 SODIUM 140 04/02/2022 POTASSIUM 4.2 04/02/2022 CO2 26 04/02/2022 CHLORIDE 105 04/02/2022 BUNSER 9 04/02/2022 CREATININE 1.00 04/02/2022 Assessment & Plan (05/15/2022 8:18 AM CDT): - chronic condition, stable status - currently on Lisinopril-HCTZ 20-12.5 mg daily - follow low salt diet - monitor bp regualarly - continue current management Lab Results Component Value Date GLUCOSE 98 04/02/2022 CALCIUM 10.1 04/02/2022 SODIUM 140 04/02/2022 POTASSIUM 4.2 04/02/2022 CO2 26 04/02/2022 CHLORIDE 105 04/02/2022 BUNSER 9 04/02/2022 CREATININE 1.00 04/02/2022 Assessment & Plan (02/13/2022 11:48 AM MONITORING SPECIALIST): - chronic condition, stable status - currently on Lisinopril-HCTZ 20-12.5 mg daily - follow low salt diet - monitor bp regualarly - continue current management Lab Results Component Value Date GLUCOSE 107 09/09/2021 CALCIUM 9.6 09/09/2021 SODIUM 140 09/09/2021 POTASSIUM 4.0 09/09/2021 CO2 29 09/09/2021 CHLORIDE 101 09/09/2021 BUNSER 6 (L) 09/09/2021 CREATININE 0.90 09/09/2021 Assessment & Plan (09/10/2021 6:41 AM CDT): HPI: Condition is stable A&P: Discussed/ordered labs, encouraged healthy, low carbohydrate lifestyle and at least 150min/week of exercise, continue on lisinopril/HCTZ 20/12.5 mg daily Assessment & Plan (03/06/2021 6:41 AM MONITORING SPECIALIST): HPI: Condition is stable A&P: Discussed/ordered labs, encouraged healthy, low carbohydrate lifestyle and at least 150min/week of exercise, continue on lisinopril/hctz 20/12.5mg daily Assessment & Plan (01/31/2021 1:09 PM MONITORING SPECIALIST): HPI: Condition is at goal A&P: Discussed/ordered labs, encouraged healthy, low carbohydrate lifestyle and at least 150min/week of exercise, continue on current management Assessment & Plan (12/19/2019 12:10 PM CDT): HPI: Condition is stable home blood pressure readings have been good A&P: Discussed/ordered labs, encouraged healthy, low carbohydrate lifestyle and at least 150min/week of exercise, continue on lisinopril/HCTZ 20/12.5 mg daily Assessment & Plan (08/09/2019 8:30 AM CDT): Discussed/ordered labs, Condition is improving encouraged healthy, low carbohydrate lifestyle and at least 150min/week of exercise, continue on lisinopril/hctz 20/12.5mg daily. bp readings at home have been 110s/60s Assessment & Plan (07/29/2019 8:09 AM CDT): Discussed/ordered labs, Condition is improving encouraged healthy, low carbohydrate lifestyle and at least 150min/week of exercise, At last office visit 2 wks agotarted on lisinopril/hctz 20/12.5mg daily. She has been doing home bp readings ranging 130s-140s/70s Assessment & Plan (07/12/2019 4:19 PM CDT): Discussed/ordered labs, Condition is worsening encouraged healthy, low carbohydrate lifestyle and at least 150min/week of exercise, we will have patient stop her hydrochlorothiazide 12.5mg. We will start on lisinopril/hctz 20/12.5mg daily. Her pharmacy is already closed today so she will pick this up tomorrow. For tonight we will have her take a second hctz 12.5mg. Discussed that if she begins having any chest pain, shortness of breath, or stroke symptoms she should go straight to the er. Pt stated understanding. Her is a wallpaper cleaner and can help monitor her symptoms. She is to check bp daily and send in weekly numbers via [employer]. Vitamin D deficiency 05/02/2019 Assessment & Plan (09/10/2021 7:50 AM CDT): HPI: Condition is stable A&P: Discussed/ordered labs, encouraged healthy, low carbohydrate lifestyle and at least 150min/week of exercise, continue on vitamin D3 47772 units three times weekly Please try to get 15 min of unsunscreened time daily with as much skin showing as possible. Anything more than 15 min, please use sunscreen. Assessment & Plan (03/06/2021 6:42 AM MONITORING SPECIALIST): HPI: Condition is stable A&P: Discussed/ordered labs, encouraged healthy, low carbohydrate lifestyle and at least 150min/week of exercise, continue on vit d3 83411 units twice weekly Assessment & Plan (12/19/2019 12:22 PM CDT): HPI: Condition is stable A&P: Discussed/ordered labs, encouraged healthy, low carbohydrate lifestyle and at least 150min/week of exercise, [place] [address] units twice weekly Assessment & Plan (08/09/2019 8:31 AM CDT): Discussed/ordered labs, Condition is improving, but not at goal encouraged healthy, low carbohydrate lifestyle and at least 150min/week of exercise, [place] 77745 units but increase to twice weekly Assessment & Plan (07/29/2019 8:51 AM CDT): Discussed/ordered labs, Condition is worsening encouraged healthy, low carbohydrate lifestyle and at least 150min/week of exercise, continue taking vit d3 41478 units twice weekly, repeat in 3 mo. Assessment & Plan (07/12/2019 4:20 PM CDT): Discussed/ordered labs, Condition is stable encouraged healthy, low carbohydrate lifestyle and at least 150min/week of exercise, continue on max d3 weekly. Labs ordered today Assessment & Plan (05/02/2019 8:25 PM MONITORING SPECIALIST): Discussed/ordered labs, Condition is stable, not improving, encouraged healthy, low carbohydrate lifestyle and at least 150min/week of exercise, Start on max d3 1 tablet daily x 1 mo Then contact office and we will switch to 1 tablet weekly Recheck vit d level in 3 mo Some insurances cover and some don't. If they do not cover, it costs about $30 for the first month, then about $5 each month after that. This is a extermination supervisor medication unless you [place] Please have pharmacy fill the script given, please do not purchase the over the counter vit d. I have had success with this brand of vit d as it is a regulated dose. Over the counter products are not as regulated and can give inconsistent results. Mixed hyperlipidemia 05/02/2019 Assessment & Plan (03/29/2024 2:12 PM MONITORING SPECIALIST): - chronic, worse - goal LDL <100 - has not been taking her Atorvastatin 40 mg daily --> restart medication, script sent in - has smoking history, has quit tobacco smoking - most recent LDL as shown below - has known obesity, Body mass index is 43.84 kg/m . Lab Results Component Value Date CHOL 191 03/26/2024 CHOL 118 12/16/2022 CHOL 209 (H) 04/02/2022 Lab Results Component Value Date HDL 57 03/26/2024 HDL 46 12/16/2022 HDL 51 04/02/2022 Lab Results Component Value Date LDLCALC 124 03/26/2024 LDLCALC 61 12/16/2022 LDLCALC 143 (H) 04/02/2022 LDL 132 (H) 10/08/2012 Lab Results Component Value Date TRIG 54 03/26/2024 TRIG 55 12/16/2022 TRIG 77 04/02/2022 Assessment & Plan (12/08/2023 12:16 PM CDT): Labs scheduled for March. Continue atorvastatin. Assessment & Plan (10/26/2023 10:17 AM CDT): - chronic, better controlled - currently on Atorvastatin 40 mg daily - has smoking history, has quit tobacco smoking - most recent LDL as shown below - has known obesity, Body mass index is 42.78 kg/m . - continue current management Lab Results Component Value Date CHOL 118 12/16/2022 CHOL 209 (H) 04/02/2022 CHOL 99 09/09/2021 Lab Results Component Value Date HDL 46 12/16/2022 HDL 51 04/02/2022 HDL 43 09/09/2021 Lab Results Component Value Date LDLCALC 61 12/16/2022 LDLCALC 143 (H) 04/02/2022 LDLCALC 46 09/09/2021 LDL 132 (H) 10/08/2012 Lab Results Component Value Date TRIG 55 12/16/2022 TRIG 77 04/02/2022 TRIG 52 09/09/2021 Assessment & Plan (04/23/2023 8:19 AM MONITORING SPECIALIST): - chronic, better controlled - currently on Atorvastatin 40 mg daily - has smoking history, has quit tobacco smoking - most recent LDL as shown below - has known obesity, Body mass index is 45.88 kg/m . - continue current management Lab Results Component Value Date CHOL 118 12/16/2022 CHOL 209 (H) 04/02/2022 CHOL 99 09/09/2021 Lab Results Component Value Date HDL 46 12/16/2022 HDL 51 04/02/2022 HDL 43 09/09/2021 Lab Results Component Value Date LDLCALC 61 12/16/2022 LDLCALC 143 (H) 04/02/2022 LDLCALC 46 09/09/2021 LDL 132 (H) 10/08/2012 Lab Results Component Value Date TRIG 55 12/16/2022 TRIG 77 04/02/2022 TRIG 52 09/09/2021 Assessment & Plan (12/16/2022 8:17 AM CDT): - chronic, not well controlled - - currently on Atorvastatin 40 mg daily -> restarted on last visit - has smoking history, has quit tobacco smoking - most recent LDL as shown below - has known obesity, Body mass index is 43.16 kg/m . - continue current management - check labs Lab Results Component Value Date CHOL 209 (H) 04/02/2022 CHOL 99 09/09/2021 CHOL 110 01/31/2021 Lab Results Component Value Date HDL 51 04/02/2022 HDL 43 09/09/2021 HDL 42 01/31/2021 Lab Results Component Value Date LDLCALC 143 (H) 04/02/2022 LDLCALC 46 09/09/2021 LDLCALC 55 01/31/2021 LDL 132 (H) 10/08/2012 Lab Results Component Value Date TRIG 77 04/02/2022 TRIG 52 09/09/2021 TRIG 63 01/31/2021 Assessment & Plan (09/16/2022 4:47 PM CDT): - chronic, not well controlled - worse, she had quit on her own - she had quit taking her Atorvastatin 40 mg daily --> discussed to restart medication which she is willing to do so - has smoking history, has quit tobacco smoking - most recent LDL as shown below - has known obesity, Body mass index is 42.8 kg/m . - continue current management Lab Results Component Value Date CHOL 209 (H) 04/02/2022 CHOL 99 09/09/2021 CHOL 110 01/31/2021 Lab Results Component Value Date HDL 51 04/02/2022 HDL 43 09/09/2021 HDL 42 01/31/2021 Lab Results Component Value Date LDLCALC 143 (H) 04/02/2022 LDLCALC 46 09/09/2021 LDLCALC 55 01/31/2021 LDL 132 (H) 10/08/2012 Lab Results Component Value Date TRIG 77 04/02/2022 TRIG 52 09/09/2021 TRIG 63 01/31/2021 Assessment & Plan (05/15/2022 8:15 AM CDT): - chronic, not well controlled - she had quit taking her Atorvastatin 40 mg daily which she has restarted after most recent lipid panel was noted - most recent LDL as shown below - has known obesity, There is no height or weight on file to calculate BMI. - continue current management Lab Results Component Value Date CHOL 209 (H) 04/02/2022 CHOL 99 09/09/2021 CHOL 110 01/31/2021 Lab Results Component Value Date HDL 51 04/02/2022 HDL 43 09/09/2021 HDL 42 01/31/2021 Lab Results Component Value Date LDLCALC 143 (H) 04/02/2022 LDLCALC 46 09/09/2021 LDLCALC 55 01/31/2021 LDL 132 (H) 10/08/2012 Lab Results Component Value Date TRIG 77 04/02/2022 TRIG 52 09/09/2021 TRIG 63 01/31/2021 Assessment & Plan (02/13/2022 12:39 PM MONITORING SPECIALIST): - chronic, well controlled - currently on Atorvastatin 40 mg daily - most recent LDL as shown below - continue management Lab Results Component Value Date CHOL 99 09/09/2021 CHOL 110 01/31/2021 CHOL 213 (H) 12/15/2019 Lab Results Component Value Date HDL 43 09/09/2021 HDL 42 01/31/2021 HDL 45 12/15/2019 Lab Results Component Value Date LDLCALC 46 09/09/2021 LDLCALC 55 01/31/2021 LDLCALC 152 (H) 12/15/2019 LDL 132 (H) 10/08/2012 Lab Results Component Value Date TRIG 52 09/09/2021 TRIG 63 01/31/2021 TRIG 81 12/15/2019 Assessment & Plan (09/10/2021 6:41 AM CDT): HPI: Condition is stable A&P: Discussed/ordered labs, encouraged healthy, low carbohydrate lifestyle and at least 150min/week of exercise, continue on atorvastatin 40 mg daily Assessment & Plan (03/06/2021 7:25 AM MONITORING SPECIALIST): HPI: Condition is at goal A&P: Discussed/ordered labs, encouraged healthy, low carbohydrate lifestyle and at least 150min/week of exercise, continue on atorvastatin 40mg daily, keep pushing water Assessment & Plan (01/31/2021 1:10 PM MONITORING SPECIALIST): Stable, continue lipitor 40. Will recheck labs today Assessment & Plan (12/19/2019 12:14 PM CDT): HPI: Condition is stable A&P: Discussed/ordered labs, encouraged healthy, low carbohydrate lifestyle and at least 150min/week of exercise, we increased atorvastatin to 20 mg daily, numbers are still increasing. We will need to increase atorvastatin to 40 mg daily Assessment & Plan (08/09/2019 8:31 AM CDT): Discussed/ordered labs, Condition is improving, but not at goal encouraged healthy, low carbohydrate lifestyle and at least 150min/week of exercise, we will increase the lipitor to 20mg daily Assessment & Plan (07/29/2019 8:10 AM CDT): Discussed/ordered labs, Condition is improving, but not at goal encouraged healthy, low carbohydrate lifestyle and at least 150min/week of exercise, we are having pt increase atorvastatin to 20mg. Assessment & Plan (07/12/2019 4:21 PM CDT): Discussed/ordered labs, Condition is stable encouraged healthy, low carbohydrate lifestyle and at least 150min/week of exercise, continue on atorvastatin 10mg daily. Labs ordered today. Assessment & Plan (05/02/2019 8:26 PM MONITORING SPECIALIST): Discussed/ordered labs, Condition is new, encouraged healthy, low carbohydrate lifestyle and at least 150min/week of exercise, Your LDL and non-HDL are elevated. This increases your risk of a cardiovascular event. You will need to start on a cholesterol lowering medication for this. We will send this in to your pharmacy. Please increase your water intake to help prevent muscle pains. Start on atorvastatin 10mg daily Generalized anxiety disorder 03/04/2019 Assessment & Plan (03/29/2024 2:11 PM MONITORING SPECIALIST): - chronic condition, better controlled - has known conditions of DUNCAN and MDD - currently on Lexparo 20 mg daily and Hydroxyzine 25 mg TID PRN The current medical regimen is effective; continue present plan and medications. Lab Results Component Value Date TSH 1.42 03/26/2024 Assessment & Plan (10/26/2023 10:23 AM CDT): - chronic condition, not at goal with persistent symptoms - has known conditions of DUNCAN and MDD - currently on Lexparo 10 mg daily --> increase to Lexapro 20 mg daily - continue with Hydroxyzine 25 mg TID PRN - continue current management at this time with changes made above Lab Results Component Value Date TSH 1.93 04/02/2022 Assessment & Plan (06/26/2023 8:22 AM CDT): - chronic condition, controlled with persistent symptoms - has known conditions of DUNCAN and MDD - currently on Lexparo 10 mg daily, and Hydroxyzine 25 mg TID PRN - continue current management at this time Lab Results Component Value Date TSH 1.93 04/02/2022 Assessment & Plan (04/23/2023 8:22 AM MONITORING SPECIALIST): - chronic condition, controlled with persistent symptoms - currently on Lexparo 10 mg daily, and Hydroxyzine 25 mg TID PRN - continue current management at this time Lab Results Component Value Date TSH 1.93 04/02/2022 Assessment & Plan (12/16/2022 8:16 AM CDT): - chronic condition, controlled with persistent symptoms - currently on Lexparo 10 mg daily, and Hydroxyzine 25 mg TID PRN - continue current management at this time Lab Results Component Value Date TSH 1.93 04/02/2022 Assessment & Plan (09/16/2022 4:39 PM CDT): - chronic condition, controlled with persistent symptoms - was off her medications but has started it back for 3-4 weeks ago - currently on Lexparo 10 mg daily, and Hydroxyzine 25 mg TID PRN - continue current management at this time Lab Results Component Value Date TSH 1.93 04/02/2022 Assessment & Plan (05/15/2022 9:03 AM CDT): - chronic condition, controlled with persistent symptoms - was off her medications but has started it back for 3-4 weeks ago - currently on Lexparo 10 mg daily, and Hydroxyzine 25 mg TID PRN - continue current management at this time Lab Results Component Value Date TSH 1.93 04/02/2022 Assessment & Plan (02/13/2022 12:30 PM MONITORING SPECIALIST): - chronic condition, controlled with persistent symptoms - currently on Lexparo 10 mg daily, and Hydroxyzine 25 mg TID PRN - continue current management Lab Results Component Value Date TSH 1.51 09/09/2021 Assessment & Plan (09/10/2021 6:42 AM CDT): Patient reiterated no suicidal thoughts at this time; take medication as directed; contact 911 and go to the ER if becomes suicidal; discussed side effects of medication with patient; encouraged healthy diet and exericise; encouraged patient to see a counselor HPI: Condition is stable A&P: Discussed/ordered labs, encouraged healthy, low carbohydrate lifestyle and at least 150min/week of exercise, continue on Escitalopram 10 mg daily Patient has hydroxyzine to use as needed for anxiety Assessment & Plan (03/06/2021 7:27 AM MONITORING SPECIALIST): Patient reiterated no suicidal thoughts at this time; take medication as directed; contact 911 and go to the ER if becomes suicidal; discussed side effects of medication with patient; encouraged healthy diet and exericise; encouraged patient to see a counselor HPI: Condition is stable has good and bad days, thinks she is doing better. She is focusing on herself this year. A&P: Discussed/ordered labs, encouraged healthy, low carbohydrate lifestyle and at least 150min/week of exercise, continue on escitalopram 10mg daily. She has not been taking the hydroxyzine about twice a week. Assessment & Plan (02/04/2021 12:12 PM MONITORING SPECIALIST): Stable. Needs refill on atarax. Follow up with Kaitlynn for medication adjustments as needed Assessment & Plan (12/20/2019 10:34 AM CDT): Patient reiterated no suicidal thoughts at this time; take medication as directed; contact 911 and go to the ER if becomes suicidal; discussed side effects of medication with patient; encouraged healthy diet and exericise; encouraged patient to see a counselor HPI: Condition is stable A&P: Discussed/ordered labs, encouraged healthy, low carbohydrate lifestyle and at least 150min/week of exercise, continue on Lexapro 10 mg daily. She has not been eating hydroxyzine. Her recently got out of the [employer] business and took an early [place] [facility] and had been out of work since July. He just got a new job working as a sound equipment mechanic at a [employer]. Assessment & Plan (08/09/2019 8:36 AM CDT): Patient reiterated no suicidal thoughts at this time; take medication as directed; contact 911 and go to the ER if becomes suicidal; discussed side effects of medication with patient; encouraged healthy diet and exericise; encouraged patient to see a counselor Discussed/ordered labs, Condition is stable encouraged healthy, low carbohydrate lifestyle and at least 150min/week of exercise, continue on lexapro 10mg daily. She feels she is being helped by it. She has not needed the hydroxyzine recently. Her is getting out of the [employer] business and is taking an early [place] [facility] and taking a new job. Assessment & Plan (07/12/2019 4:22 PM CDT): Patient reiterated no suicidal thoughts at this time; take medication as directed; contact 911 and go to the ER if becomes suicidal; discussed side effects of medication with patient; encouraged healthy diet and exericise; encouraged patient to see a counselor Condition is improving, encouraged healthy, low carbohydrate lifestyle and at least 150min/week of exercise Pt is taking lexapro 10mg daily, as this helps with the depression and anxiety. She is taking hydroxyzine 25mg for anxiety. Please consider this a rescue medication. If you are needing it multiple times a day, please contact my office. She is here today for a follow up visit. She says she is improving. She has used the hydroxyzine twice a week when her isn't home-he is a wallpaper cleaner. She likes that dose and we will stay on the same plan. She still feels she is doing well on these meds. Assessment & Plan (05/02/2019 8:22 PM MONITORING SPECIALIST): Patient reiterated no suicidal thoughts at this time; take medication as directed; contact 911 and go to the ER if becomes suicidal; discussed side effects of medication with patient; encouraged healthy diet and exericise; encouraged patient to see a counselor Condition is worsening, encouraged healthy, low carbohydrate lifestyle and at least 150min/week of exercise She also uses alprazolam 0.5mg about twice a week. Her is a wallpaper cleaner and she takes them more when he is gone to work. She uses the alprazolam for sleep. At last office visit, we stopped the prozac and started on lexapro 10mg daily, as this should help with the depression and anxiety. We stopped the alprazolam and switched to buspirone 10mg but it made her wired. We stopped it and switched to [id number]. Please consider this a rescue medication. If you are needing it multiple times a day, please contact my office. She is here today for a follow up visit. She says she is improving. She has used the hydroxyzine twice a week when her isn't home-he is a wallpaper cleaner. She likes that dose and we will stay on the same plan. We will re-evaluate patient in 4-6 wks Assessment & Plan (03/04/2019 8:44 AM MONITORING SPECIALIST): Discussed/ordered labs, Condition is worsening, encouraged healthy, low carbohydrate lifestyle and at least 150min/week of exercise, pt has been on alprazolam 0.5mg usually using it a couple times a week. We will stop the alprazolam and switch to buspirone 10mg. Please consider this a rescue medication. If you are needing it multiple times a day, please contact my office. Morbid obesity with BMI of 40.0-44.9, adult 05/2019 Assessment & Plan (03/29/2024 2:05 PM MONITORING SPECIALIST): Wt Readings from Last 3 Encounters: 03/29/24 105.2 kg (231 lb 14.4 oz) 12/08/23 103.9 kg (229 lb) 10/26/23 102.6 kg (226 lb 4.8 oz) Body mass index is 43.84 kg/m . - chronic condition, not at goal - goal BMI <30 - BMI Follow-up includes: nutrition counseling, exercise counseling and education - making changes in her diet and activity which is encouraging, she wants to consider Wegovy in the future if she does not continue to lose weight - co-morbidities - hypertension, hyperlipidemia Assessment & Plan (10/26/2023 10:22 AM CDT): Wt Readings from Last 3 Encounters: 10/26/23 102.6 kg (226 lb 4.8 oz) 07/02/23 107.5 kg (237 lb) 06/26/23 107.5 kg (237 lb) Body mass index is 42.78 kg/m . - chronic condition, not at goal - improved, small weight loss noted again - BMI Follow-up includes: nutrition counseling, exercise counseling and education - making changes in her diet and activity which is encouraging, she wants to consider Wegovy in the future if she does not continue to lose weight - co-morbidities - hypertension, hyperlipidemia Assessment & Plan (06/26/2023 8:42 AM CDT): Wt Readings from Last 3 Encounters: 06/26/23 107.5 kg (237 lb) 04/23/23 110.2 kg (243 lb) 02/12/23 108 kg (238 lb 1.6 oz) Body mass index is 44.75 kg/m . - chronic condition, not at goal - improved, small weight loss noted - BMI Follow-up includes: nutrition counseling, exercise counseling and education - making changes in her diet and activity which is encouraging, she wants to consider Wegovy in the future if she does not continue to lose weight - co-morbidities - hypertension, hyperlipidemia Assessment & Plan (04/23/2023 8:15 AM MONITORING SPECIALIST): Wt Readings from Last 3 Encounters: 04/23/23 110.2 kg (243 lb) 02/12/23 108 kg (238 lb 1.6 oz) 12/16/22 107 kg (236 lb) Body mass index is 45.88 kg/m . - chronic condition, not at goal - small weight gain noted - BMI Follow-up includes: nutrition counseling, exercise counseling and education - co-morbidities - hypertension, hyperlipidemia Assessment & Plan (12/16/2022 8:17 AM CDT): Wt Readings from Last 3 Encounters: 12/16/22 107 kg (236 lb) 12/01/22 104.8 kg (231 lb) 09/16/22 106.1 kg (234 lb) Body mass index is 43.16 kg/m . - chronic condition, not at goal - small weight gain noted - BMI Follow-up includes: nutrition counseling, exercise counseling and education Assessment & Plan (05/15/2022 9:05 AM CDT): Wt Readings from Last 3 Encounters: 05/15/22 104.3 kg (230 lb) 03/13/22 102.1 kg (225 lb) 02/13/22 103.4 kg (228 lb) Body mass index is 42.07 kg/m . - chronic condition, not at goal - small weight gain - BMI Follow-up includes: nutrition counseling, exercise counseling and education Assessment & Plan (02/13/2022 11:49 AM MONITORING SPECIALIST): Wt Readings from Last 3 Encounters: 11/18/21 102.1 kg (225 lb) 09/10/21 103.5 kg (228 lb 3.2 oz) 07/20/21 104 kg (229 lb 3.2 oz) There is no height or weight on file to calculate BMI. - chronic condition, not at goal - BMI Follow-up includes: nutrition counseling, exercise counseling and education provided Assessment & Plan (09/10/2021 6:42 AM CDT): HPI: Condition is not at/near goal goal BMI <30 A&P: Healthy, high-protein, lower carbohydrate, lower fat lifestyle and exercise for 150min/week recommended Recommend tracking everything you put in your mouth on an grayson like [employer] Lower carb substitutions: [employer] carries a zero net carb bread If you are looking for whole potatoes, like to use in soup or new potato shape/flavor, radishes are a great replacement If you are looking for mashed potatoes, riced cauliflower in the frozen bag section are a great replacement For pasta, try using zucchini noodles, lay them out on a cookie sheet and pat dry with a tea towel to try to remove as much moisture as possible. Heat your pasta sauce on the stove and put the noodles in for 30-45 seconds. If you leave them in much longer they will become mushy [place] and/or coconut flour instead of regular flour For pizza dough, try fathead pizza dough recipe online. To get a crispy crust, bake on one side for 8-12 min, then flip over and bake on the other side for 8-12 min, then put toppings on and bake until the cheese on top of pizza melts chaffles recipe online For ice cream, try the brand Enlightened To replace coffee creamer and make it low carb, use heavy creamer with sugar free Torani sweetener For chips, try Whisps or pork rinds For yogurt, try Two Good georgian yogurt Use Rajan for recipe ideas. Type in low carb... Hand Measurements: A fist or cupped hand = 1 cup 1 cup = 1 -2 servings of fruit juice 1 oz. of cold cereal 2 oz. of cooked cereal, rice or pasta 8 oz. of milk or yogurt A thumb = 1 oz. of cheese Consuming low-fat cheese helps you meet the required servings from the milk, yogurt and cheese group. 1 oz. of low-fat cheese counts as 8 oz. of milk or yogurt. Handful = 1-2 oz. of snack food Thumb tip = 1 teaspoon Keep high-fat foods, such as peanut butter and mayonnaise, at a minimum. One teaspoon is equal to the end of your thumb, from the knuckle up. Three teaspoons equals 1 tablespoon. Palm = 3 oz. of meat Choose lean poultry, fish, shellfish and beef. One palm size portion equals 3 oz. for an adult and 1 -2 oz. for a child under 5. 1 tennis ball or a fist= 1/2 cup of fruit and vegetables Healthy diets include a variety of colorful fruits and vegetables every day. The secret to serving size is in your hand. Snacking can add up. Remember, 1 handful equals 1 oz. of nuts and small candies. For chips and pretzels, 2 handfuls equals 1 oz. Because hand sizes vary, compare your fist size to an actual measuring cup. Assessment & Plan (05/20/2021 6:55 AM CDT): HPI: Condition is not at/near goal goal BMI <30 A&P: Healthy, high-protein, lower carbohydrate, lower fat lifestyle and exercise for 150min/week recommended Substitutions: Recommend tracking everything you put in your mouth on an grayson like [employer] or [employer] carries a zero net carb bread If you are looking for whole potatoes, like to use in soup or new potato shape/flavor, radishes are a great replacement If you are looking for mashed potatoes, riced cauliflower in the frozen bag section are a great replacement For pasta, try using zucchini noodles, lay them out on a cookie sheet and pat dry with a tea towel to try to remove as much moisture as possible. Heat your pasta sauce on the stove and put the noodles in for 30-45 seconds. If you leave them in much longer they will become mushy [place] and/or coconut flour instead of regular flour For pizza dough, try fathead pizza dough recipe online. To get a crispy crust, bake on one side for 8-12 min, then flip over and bake on the other side for 8-12 min, then put toppings on and bake until the cheese on top of pizza melts chaffles recipe online For ice cream, try the brand Enlightened To replace coffee creamer and make it low carb, use heavy creamer with sugar free Torani sweetener For chips, try Whisps or pork rinds For yogurt, try Two Good georgian yogurt Use Rajan for recipe ideas. Type in low carb... Assessment & Plan (04/17/2021 1:01 PM MONITORING SPECIALIST): HPI: Condition is not at/near goal goal BMI <30 A&P: Healthy, high-protein, lower carbohydrate, lower fat lifestyle and exercise for 150min/week recommended Substitutions: Recommend tracking everything you put in your mouth on an grayson like [employer] or [employer] carries a zero net carb bread If you are looking for whole potatoes, like to use in soup or new potato shape/flavor, radishes are a great replacement If you are looking for mashed potatoes, riced cauliflower in the frozen bag section are a great replacement For pasta, try using zucchini noodles, lay them out on a cookie sheet and pat dry with a tea towel to try to remove as much moisture as possible. Heat your pasta sauce on the stove and put the noodles in for 30-45 seconds. If you leave them in much longer they will become mushy [place] and/or coconut flour instead of regular flour For pizza dough, try fathead pizza dough recipe online. To get a crispy crust, bake on one side for 8-12 min, then flip over and bake on the other side for 8-12 min, then put toppings on and bake until the cheese on top of pizza melts chaffles recipe online For ice cream, try the brand Enlightened To replace coffee creamer and make it low carb, use heavy creamer with sugar free Torani sweetener For chips, try Whisps or pork rinds For yogurt, try Two Good georgian yogurt Use [employer] for recipe ideas. Type in low carb... Assessment & Plan (03/06/2021 7:26 AM MONITORING SPECIALIST): HPI: Condition is not at/near goal goal BMI <30 A&P: Healthy, high-protein, lower carbohydrate, lower fat lifestyle and exercise for 150min/week recommended We will get pt scheduled with Christelle Brannon NP to do wt loss program Substitutions: Recommend tracking everything you put in your mouth on an grayson like [employer] or [employer] carries a zero net carb bread If you are looking for whole potatoes, like to use in soup or new potato shape/flavor, radishes are a great replacement If you are looking for mashed potatoes, riced cauliflower in the frozen bag section are a great replacement For pasta, try using zucchini noodles, lay them out on a cookie sheet and pat dry with a tea towel to try to remove as much moisture as possible. Heat your pasta sauce on the stove and put the noodles in for 30-45 seconds. If you leave them in much longer they will become mushy [place] and/or coconut flour instead of regular flour For pizza dough, try fathead pizza dough recipe online. To get a crispy crust, bake on one side for 8-12 min, then flip over and bake on the other side for 8-12 min, then put toppings on and bake until the cheese on top of pizza melts chaffles recipe online For ice cream, try the brand Enlightened To replace coffee creamer and make it low carb, use heavy creamer with sugar free Torani sweetener For chips, try Whisps or pork rinds For yogurt, try Two Good georgian yogurt Use Pinterest for recipe ideas. Type in low carb... Assessment & Plan (01/31/2021 1:10 PM MONITORING SPECIALIST): HPI: Condition is not at/near goal A&P: Discussed/ordered labs, encouraged healthy, low carbohydrate lifestyle and at least 150min/week of exercise Assessment & Plan (12/19/2019 12:22 PM CDT): HPI: Condition is stable A&P: Healthy, low carbohydrate lifestyle and exercise for 150min/week recommended Substitutions: [employer] carries a zero net carb bread If you are looking for whole potatoes, like to use in soup or new potato shape/flavor, radishes are a great replacement If you are looking for mashed potatoes, riced cauliflower in the frozen bag section are a great replacement For pasta, try using zucchini noodles, lay them out on a cookie sheet and pat dry with a tea towel to try to remove as much moisture as possible. Heat your pasta sauce on the stove and put the noodles in for 30-45 seconds. If you leave them in much longer they will become mushy [place] and/or coconut flour instead of regular flour For pizza dough, try fathead pizza dough recipe online. To get a crispy crust, bake on one side for 8-12 min, then flip over and bake on the other side for 8-12 min, then put toppings on and bake until the cheese on top of pizza melts chaffles recipe online For ice cream, try the brand Enlightened Use [employer] for recipe ideas. Type in low carb... Assessment & Plan (08/09/2019 8:35 AM CDT): Healthy, low carbohydrate lifestyle and exercise for 150min/week recommended Assessment & Plan (07/28/2019 5:16 PM CDT): Healthy, low carbohydrate lifestyle and exercise for 150min/week recommended Assessment & Plan (07/12/2019 4:20 PM CDT): Healthy, low carbohydrate lifestyle and exercise for 150min/week recommended Assessment & Plan (05/02/2019 8:22 PM MONITORING SPECIALIST): Healthy, low carbohydrate lifestyle and exercise for 150min/week recommended Assessment & Plan (03/04/2019 8:48 AM MONITORING SPECIALIST): Healthy, low carbohydrate lifestyle and exercise for 150min/week recommended History of diverticulitis 10/05/2018 Assessment & Plan (05/15/2022 9:04 AM CDT): - most recent Colonoscopy 06/02/16, repeat in [address] Abd/Pelvis 11/2017 IMPRESSION: 1. NO ACUTE INTRA-ABDOMINAL OR INTRAPELVIC ABNORMALITY. 2. 18 MM SIMPLE RIGHT OVARIAN CYST AND 15 MM SIMPLE LEFT OVARIAN CYST. 3. CHOLECYSTECTOMY. 4. FATTY INFILTRATION OF THE LIVER.. CT Abdomen/pelvis W contrast 09/2018 IMPRESSION: 1. Fluid and air-fluid levels in nondilated small bowel and colon suggestive of mild enterocolitis/gastroenteritis/other diarrheal condition 2. Status post cholecystectomy. 3. No other significant abdominal or pelvic findings. Assessment & Plan (09/10/2021 6:42 AM CDT): HPI: Condition is stable no recent flares A&P: Discussed/ordered labs, encouraged healthy, low carbohydrate lifestyle and at least 150min/week of exercise Assessment & Plan (03/06/2021 6:43 AM MONITORING SPECIALIST): HPI: Condition is stable no recent flares Last colonoscopy 06/02/2016, repeat in 10 yrs A&P: Discussed/ordered labs, encouraged healthy, low carbohydrate lifestyle and at least 150min/week of exercise Assessment & Plan (12/19/2019 12:24 PM CDT): HPI: Condition is stable A&P: Discussed/ordered labs, encouraged healthy, low carbohydrate lifestyle and at least 150min/week of exercise, no recent diverticulitis flares Assessment & Plan (08/09/2019 8:32 AM CDT): No recent diverticulitis flares. Assessment & Plan (03/04/2019 8:27 AM MONITORING SPECIALIST): Last flare was a year ago. She had Colonoscopy 06/02/16, repeat in 10 yrs Medical marijuana use 09/20/2018 Assessment & Plan (09/10/2021 7:51 AM CDT): Patient uses this for chronic back pain and neuropathy. She states she only uses as needed, mostly after working because she is on her feet all day. Has not been using it often due to her cough and it irritates her throat Assessment & Plan (03/06/2021 6:45 AM MONITORING SPECIALIST): Pt uses this for chronic back pain and neuropathy. She states she only uses it as needed, mostly after working because she is on her feet all day. Assessment & Plan (12/19/2019 12:28 PM CDT): HPI: Condition is stable, she uses for chronic back pain and neuropathy. She says she uses as needed. Mostly use the after working because she is on her feet all day. A&P: Discussed/ordered labs, encouraged healthy, low carbohydrate lifestyle and at least 150min/week of exercise, Assessment & Plan (03/04/2019 8:30 AM MONITORING SPECIALIST): She uses this for chronic back pain and neuropathy She uses it as needed. She needs it after working because she is on her feet all day. Moderate episode of recurrent major depressive d isorder 11/04/2016 Assessment & Plan (03/29/2024 2:11 PM MONITORING SPECIALIST): - chronic condition, better controlled - has known conditions of DUNCAN and MDD - currently on Lexparo 20 mg daily and Hydroxyzine 25 mg TID PRN The current medical regimen is effective; continue present plan and medications. Lab Results Component Value Date TSH 1.42 03/26/2024 Assessment & Plan (10/26/2023 10:23 AM CDT): - chronic condition, not at goal with persistent symptoms - has known conditions of DUNCAN and MDD - currently on Lexparo 10 mg daily --> increase to Lexapro 20 mg daily - continue with Hydroxyzine 25 mg TID PRN - continue current management at this time with changes made above Lab Results Component Value Date TSH 1.93 04/02/2022 Assessment & Plan (06/26/2023 8:22 AM CDT): - chronic condition, controlled with persistent symptoms - has known conditions of DUNCAN and MDD - currently on Lexparo 10 mg daily, and Hydroxyzine 25 mg TID PRN - continue current management at this time Lab Results Component Value Date TSH 1.93 04/02/2022 Assessment & Plan (04/23/2023 8:22 AM MONITORING SPECIALIST): - chronic condition, controlled with persistent symptoms - currently on Lexparo 10 mg daily, and Hydroxyzine 25 mg TID PRN - continue current management at this time Lab Results Component Value Date TSH 1.93 04/02/2022 Assessment & Plan (12/16/2022 8:16 AM CDT): - chronic condition, controlled with persistent symptoms - currently on Lexparo 10 mg daily, and Hydroxyzine 25 mg TID PRN - continue current management at this time Lab Results Component Value Date TSH 1.93 04/02/2022 Assessment & Plan (09/16/2022 4:39 PM CDT): - chronic condition, controlled with persistent symptoms - was off her medications but has started it back for 3-4 weeks ago - currently on Lexparo 10 mg daily, and Hydroxyzine 25 mg TID PRN - continue current management at this time Lab Results Component Value Date TSH 1.93 04/02/2022 Assessment & Plan (05/15/2022 9:03 AM CDT): - chronic condition, controlled with persistent symptoms - was off her medications but has started it back for 3-4 weeks ago - currently on Lexparo 10 mg daily, and Hydroxyzine 25 mg TID PRN - continue current management at this time Lab Results Component Value Date TSH 1.93 04/02/2022 Assessment & Plan (02/13/2022 12:31 PM MONITORING SPECIALIST): - chronic condition, controlled with persistent symptoms - currently on Lexparo 10 mg daily, and Hydroxyzine 25 mg TID PRN - continue current management Lab Results Component Value Date TSH 1.51 09/09/2021 Assessment & Plan (09/10/2021 7:46 AM CDT): Patient reiterated no suicidal thoughts at this time; take medication as directed; contact 911 and go to the ER if becomes suicidal; discussed side effects of medication with patient; encouraged healthy diet and exericise; encouraged patient to see a counselor HPI: Condition is stable A&P: Discussed/ordered labs, encouraged healthy, low carbohydrate lifestyle and at least 150min/week of exercise, continue on Escitalopram 10 mg daily Patient has hydroxyzine to use as needed for anxiety, uses it 3-4 times a week right now. Has a lot of family and work drama going on Assessment & Plan (03/06/2021 7:23 AM MONITORING SPECIALIST): Patient reiterated no suicidal thoughts at this time; take medication as directed; contact 911 and go to the ER if becomes suicidal; discussed side effects of medication with patient; encouraged healthy diet and exericise; encouraged patient to see a counselor HPI: Condition is stable has good and bad days, thinks she is doing better. She is focusing on herself this year. A&P: Discussed/ordered labs, encouraged healthy, low carbohydrate lifestyle and at least 150min/week of exercise, continue on escitalopram 10mg daily. She has not been taking the hydroxyzine about twice a week. Assessment & Plan (12/20/2019 10:30 AM CDT): Patient reiterated no suicidal thoughts at this time; take medication as directed; contact 911 and go to the ER if becomes suicidal; discussed side effects of medication with patient; encouraged healthy diet and exericise; encouraged patient to see a counselor HPI: Condition is stable A&P: Discussed/ordered labs, encouraged healthy, low carbohydrate lifestyle and at least 150min/week of exercise, continue on Lexapro 10 mg daily. She has not been eating hydroxyzine. Her recently got out of the [employer] and took an [facility] [place] [facility] and had been out of work since July. He just got a new job working as a sound equipment mechanic at a [employer]. Assessment & Plan (08/09/2019 8:29 AM CDT): Patient reiterated no suicidal thoughts at this time; take medication as directed; contact 911 and go to the ER if becomes suicidal; discussed side effects of medication with patient; encouraged healthy diet and exericise; encouraged patient to see a counselor Discussed/ordered labs, Condition is stable encouraged healthy, low carbohydrate lifestyle and at least 150min/week of exercise, continue on lexapro 10mg daily. She feels she is being helped by it. She has not needed the hydroxyzine recently. Her is getting out of the [employer] business and is taking an early [place] [facility] and taking a new job. Assessment & Plan (07/12/2019 4:15 PM CDT): Patient reiterated no suicidal thoughts at this time; take medication as directed; contact 911 and go to the ER if becomes suicidal; discussed side effects of medication with patient; encouraged healthy diet and exericise; encouraged patient to see a counselor Condition is improving, encouraged healthy, low carbohydrate lifestyle and at least 150min/week of exercise Pt is taking lexapro 10mg daily, as this helps with the depression and anxiety. She is taking hydroxyzine 25mg for anxiety. Please consider this a rescue medication. If you are needing it multiple times a day, please contact my office. She is here today for a follow up visit. She says she is improving. She has used the hydroxyzine twice a week when her isn't home-he is a wallpaper cleaner. She likes that dose and we will stay on the same plan. She still feels she is doing well on these meds. Assessment & Plan (05/02/2019 8:22 PM MONITORING SPECIALIST): Patient reiterated no suicidal thoughts at this time; take medication as directed; contact 911 and go to the ER if becomes suicidal; discussed side effects of medication with patient; encouraged healthy diet and exericise; encouraged patient to see a counselor Condition is worsening, encouraged healthy, low carbohydrate lifestyle and at least 150min/week of exercise She also uses alprazolam 0.5mg about twice a week. Her is a wallpaper cleaner and she takes them more when he is gone to work. She uses the alprazolam for sleep. At last office visit, we stopped the prozac and started on lexapro 10mg daily, as this should help with the depression and anxiety. We stopped the alprazolam and switched to buspirone 10mg but it made her wired. We stopped it and switched to [id number]. Please consider this a rescue medication. If you are needing it multiple times a day, please contact my office. She is here today for a follow up visit. She says she is improving. She has used the hydroxyzine twice a week when her isn't home-he is a wallpaper cleaner. She likes that dose and we will stay on the same plan. We will re-evaluate patient in 4-6 wks Assessment & Plan (03/04/2019 8:45 AM MONITORING SPECIALIST): Patient reiterated no suicidal thoughts at this time; take medication as directed; contact 911 and go to the ER if becomes suicidal; discussed side effects of medication with patient; encouraged healthy diet and exericise; encouraged patient to see a counselor Discussed/ordered labs, Condition is worsening, encouraged healthy, low carbohydrate lifestyle and at least 150min/week of exercise, pt is currently taking prozac 20mg and has been on it for 2 1/2 years and doesn't feel it is helping. She felt it helped at first, but in the last couple months she doesn't feel it is working. She also uses alprazolam 0.5mg about twice a week. Her is a wallpaper cleaner and she takes them more when he is gone to work. She uses the alprazolam for sleep. We will stop the prozac and start on lexapro 10mg daily, this should help with the depression and anxiety. We will stop the alprazolam and switch to buspirone 10mg. Please consider this a rescue medication. If you are needing it multiple times a day, please contact my office. 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 MRI Lumbar spine WO Contrast 2019 Lumbar alignment is anatomic with no lumbar compression fracture. There is disc desiccation at the L3-L4, L4-L5 and L5-S1 levels. There is minimal endplate marrow edema at L4-L5. Signal pattern in the distal cord is normal. There is very mild multilevel facet osteoarthritis. L5/S1: There is very mild right lateral disc bulging without significant spinal canal or neural foraminal stenosis. L4/L5: There is no focal disc protrusion, disc bulging or spinal canal or neural foraminal stenosis. L3/L4: There is no focal disc protrusion, disc bulging or spinal canal or neural foraminal stenosis. L2/L3: There is no focal disc protrusion, disc bulging or spinal canal or neural foraminal stenosis. L1/L2: There is no focal disc protrusion, disc bulging or spinal canal or neural foraminal stenosis. T12/L1: There is no focal disc protrusion, disc bulging or spinal canal or neural foraminal stenosis. IMPRESSION: 1. VERY MILD RIGHT LATERAL L5-S1 DISC BULGING WITHOUT SIGNIFICANT SPINAL CANAL OR NEURAL FORAMINAL STENOSIS. MRI Cervical WO Contrast 2019 IMPRESSION: 1. Mild central disc protrusion at C5-C6. 2. Mild disc bulge at C6-C7; minimal at C4-C5. 3. Straightening of lordosis. 4. No other significant cervical spine abnormality seen. Assessment & Plan (10/26/2023 10:17 AM CDT): - chronic, better controlled - used to follow with Dr. 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 There is disc desiccation at the L3-L4, L4-L5 and L5-S1 levels. There is minimal endplate marrow edema at L4-L5. Signal pattern in the distal cord is normal. There is very mild multilevel facet osteoarthritis. L5/S1: There is very mild right lateral disc bulging without significant spinal canal or neural foraminal stenosis. L4/L5: There is no focal disc protrusion, disc bulging or spinal canal or neural foraminal stenosis. L3/L4: There is no focal disc protrusion, disc bulging or spinal canal or neural foraminal stenosis. L2/L3: There is no focal disc protrusion, disc bulging or spinal canal or neural foraminal stenosis. L1/L2: There is no focal disc protrusion, disc bulging or spinal canal or neural foraminal stenosis. T12/L1: There is no focal disc protrusion, disc bulging or spinal canal or neural foraminal stenosis. IMPRESSION: 1. VERY MILD RIGHT LATERAL L5-S1 DISC BULGING WITHOUT SIGNIFICANT SPINAL CANAL OR NEURAL FORAMINAL STENOSIS. MRI Cervical WO Contrast 2019 IMPRESSION: 1. Mild central disc protrusion at C5-C6. 2. Mild disc bulge at C6-C7; minimal at C4-C5. 3. Straightening of lordosis. 4. No other significant cervical spine abnormality seen. Assessment & Plan (06/26/2023 8:21 AM CDT): - chronic, better controlled - used to follow with Dr. 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 There is disc desiccation at the L3-L4, L4-L5 and L5-S1 levels. There is minimal endplate marrow edema at L4-L5. Signal pattern in the distal cord is normal. There is very mild multilevel facet osteoarthritis. L5/S1: There is very mild right lateral disc bulging without significant spinal canal or neural foraminal stenosis. L4/L5: There is no focal disc protrusion, disc bulging or spinal canal or neural foraminal stenosis. L3/L4: There is no focal disc protrusion, disc bulging or spinal canal or neural foraminal stenosis. L2/L3: There is no focal disc protrusion, disc bulging or spinal canal or neural foraminal stenosis. L1/L2: There is no focal disc protrusion, disc bulging or spinal canal or neural foraminal stenosis. T12/L1: There is no focal disc protrusion, disc bulging or spinal canal or neural foraminal stenosis. IMPRESSION: 1. VERY MILD RIGHT LATERAL L5-S1 DISC BULGING WITHOUT SIGNIFICANT SPINAL CANAL OR NEURAL FORAMINAL STENOSIS. MRI Cervical WO Contrast 2019 IMPRESSION: 1. Mild central disc protrusion at C5-C6. 2. Mild disc bulge at C6-C7; minimal at C4-C5. 3. Straightening of lordosis. 4. No other significant cervical spine abnormality seen. Assessment & Plan (04/23/2023 8:32 AM MONITORING SPECIALIST): - chronic, not at goal - used to follow with Dr. 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 There is disc desiccation at the L3-L4, L4-L5 and L5-S1 levels. There is minimal endplate marrow edema at L4-L5. Signal pattern in the distal cord is normal. There is very mild multilevel facet osteoarthritis. L5/S1: There is very mild right lateral disc bulging without significant spinal canal or neural foraminal stenosis. L4/L5: There is no focal disc protrusion, disc bulging or spinal canal or neural foraminal stenosis. L3/L4: There is no focal disc protrusion, disc bulging or spinal canal or neural foraminal stenosis. L2/L3: There is no focal disc protrusion, disc bulging or spinal canal or neural foraminal stenosis. L1/L2: There is no focal disc protrusion, disc bulging or spinal canal or neural foraminal stenosis. T12/L1: There is no focal disc protrusion, disc bulging or spinal canal or neural foraminal stenosis. IMPRESSION: 1. VERY MILD RIGHT LATERAL L5-S1 DISC BULGING WITHOUT SIGNIFICANT SPINAL CANAL OR NEURAL FORAMINAL STENOSIS. MRI Cervical WO Contrast 2019 IMPRESSION: 1. Mild central disc protrusion at C5-C6. 2. Mild disc bulge at C6-C7; minimal at C4-C5. 3. Straightening of lordosis. 4. No other significant cervical spine abnormality seen. Assessment & Plan (05/15/2022 9:10 AM CDT): - chronic, not at goal - used to follow with Dr. 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 There is disc desiccation at the L3-L4, L4-L5 and L5-S1 levels. There is minimal endplate marrow edema at L4-L5. Signal pattern in the distal cord is normal. There is very mild multilevel facet osteoarthritis. L5/S1: There is very mild right lateral disc bulging without significant spinal canal or neural foraminal stenosis. L4/L5: There is no focal disc protrusion, disc bulging or spinal canal or neural foraminal stenosis. L3/L4: There is no focal disc protrusion, disc bulging or spinal canal or neural foraminal stenosis. L2/L3: There is no focal disc protrusion, disc bulging or spinal canal or neural foraminal stenosis. L1/L2: There is no focal disc protrusion, disc bulging or spinal canal or neural foraminal stenosis. T12/L1: There is no focal disc protrusion, disc bulging or spinal canal or neural foraminal stenosis. IMPRESSION: 1. VERY MILD RIGHT LATERAL L5-S1 DISC BULGING WITHOUT SIGNIFICANT SPINAL CANAL OR NEURAL FORAMINAL STENOSIS. MRI Cervical WO Contrast 2019 IMPRESSION: 1. Mild central disc protrusion at C5-C6. 2. Mild disc bulge at C6-C7; minimal at C4-C5. 3. Straightening of lordosis. 4. No other significant cervical spine abnormality seen. Assessment & Plan (02/13/2022 12:52 PM MONITORING SPECIALIST): - chronic, not at goal - follows with Dr. 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 Vazquez ortho, meloxicam 15 mg daily, continue home exercises learned in physical therapy, patient uses medical marijuana as needed Assessment & Plan (03/06/2021 6:47 AM MONITORING SPECIALIST): HPI: Condition is stable A&P: Discussed/ordered labs, encouraged healthy, low carbohydrate lifestyle and at least 150min/week of exercise, continue f/u with Dr. George norris, meloxicam 10mg daily, continue home exercises learned in PT Assessment & Plan (12/20/2019 10:37 AM CDT): HPI: Condition is stable, seeing specialist, did PT which helped A&P: Discussed/ordered labs, encouraged healthy, low carbohydrate lifestyle and at least 150min/week of exercise, continue follow-up with Dr. vazquez orthopedic Assessment & Plan (08/09/2019 8:34 AM CDT): Condition is worsening. Pt is seeing Dr. George norman). encouraged healthy, low carbohydrate lifestyle and at least 150min/week of exercise Assessment & Plan (05/02/2019 8:24 PM MONITORING SPECIALIST): Condition is worsening. Pt is seeing Dr. Vazquez ([place]). She recently had steroid injection but it did not work. She is going to contact his office for further treatment plan. encouraged healthy, low carbohydrate lifestyle and at least 150min/week of exercise Assessment & Plan (03/04/2019 8:23 AM MONITORING SPECIALIST): Discussed/ordered labs, Condition is stable, encouraged healthy, low carbohydrate lifestyle and at least 150min/week of exercise, continue seeing Dr. Vazquez ([place]), he has her on meloxicam 10mg daily, she had injections in the past that did not help Migraine with aura and witho ut status migrainosus, not intractable 09/13/2013 Assessment & Plan (06/26/2023 8:45 AM CDT): - Condition is Chronic, stable - encouraged healthy, low carbohydrate lifestyle and at least 150min/week of exercise, continue on meloxicam 15 mg daily, Tylenol as needed, goes into a dark room. Discussed avoiding all caffeine: no soda, tea, coffee, chocolate; no wine; no sharp cheeses; no processed meats like hot dogs or bologna; no MSG as found in salvadorean food; no more than 1/2 banana a day; no artificial sweeteners; fresh bread (less than 24 hours old) - Avoid using excedrin, tylenol, ibuprofen or aleve more than twice a week or else you can cause medication overuse/rebound headaches. You may be causing the headaches with the medications you are taking to get rid of them. - Be sure to push lots of water as dehydration is a big cause of headaches. Assessment & Plan (09/10/2021 6:44 AM CDT): HPI: Condition is stable A&P: Discussed/ordered labs, encouraged healthy, low carbohydrate lifestyle and at least 150min/week of exercise, continue on meloxicam 15 mg daily, Tylenol as needed, goes into a dark room. Discussed avoiding all caffeine: no soda, tea, coffee, chocolate; no wine; no sharp cheeses; no processed meats like hot dogs or bologna; no MSG as found in salvadorean food; no more than 1/2 banana a day; no artificial sweeteners; fresh bread (less than 24 hours old) Avoid using excedrin, tylenol, ibuprofen or aleve more than twice a week or else you can cause medication overuse/rebound headaches. You may be causing the headaches with the medications you are taking to get rid of them. Be sure to push lots of water as dehydration is a big cause of headaches. Assessment & Plan (03/06/2021 7:29 AM MONITORING SPECIALIST): HPI: Condition is stable A&P: Discussed/ordered labs, encouraged healthy, low carbohydrate lifestyle and at least 150min/week of exercise, continue on meloxicam 10mg daily, tylenol as needed, goes into a dark room. Discussed avoiding all caffeine: no soda, tea, coffee, chocolate; no wine; no sharp cheeses; no processed meats like hot dogs or bologna; no MSG as found in salvadorean food; no more than 1/2 banana a day; no artificial sweeteners; fresh bread (less than 24 hours old) Avoid using tylenol, ibuprofen or aleve more than twice a week or else you can cause medication overuse/rebound headaches. You may be causing the headaches with the medications you are taking to get rid of them. Be sure to push lots of water as dehydration is a big cause of headaches. Assessment & Plan (12/20/2019 10:36 AM CDT): HPI: Condition is stable, more lately due to stress. She has had 5 this month. She has been having more pain in her neck from her herniated disc and doing PT A&P: Discussed/ordered labs, encouraged healthy, low carbohydrate lifestyle and at least 150min/week of exercise, continue on meloxicam and tylenol as needed along with going in a dark room Assessment & Plan (08/09/2019 8:33 AM CDT): Discussed/ordered labs, Condition is improving encouraged healthy, low carbohydrate lifestyle and at least 150min/week of exercise, she has not had one in a while. She uses meloxicam and tylenol, goes in a dark room when she gets them. Assessment & Plan (03/04/2019 8:25 AM MONITORING SPECIALIST): Discussed/ordered labs, Condition is improving, encouraged healthy, low carbohydrate lifestyle and at least 150min/week of exercise, pt was having 3-4/mo and is now down to 2xmo. She is taking the meloxicam and attributes the decrease to that. discussed keeping a headache diary; discussed avoiding all caffeine, no soda, tea, coffee, chocolate, no sharp cheeses, no processed meats, no hot dogs, no MSG as found in salvadorean food, no more than 1/2 banana a day, no artificial sweeteners, fresh bread (less than 24 hours old); drink lots of water. Resolved Problems Problem Noted Date Diagnosed Date Resolved Date Tension headache 09/08/2022 06/26/2023 Bronchitis 07/20/2021 09/10/2021 Assessment & Plan (07/20/2021 9:08 AM CDT): medrol dose pack sent. Has albuterol inhaler at home. To continue expectorant (ie nyquil/dayquil). Reviewed med Ses & scheduling. Aware to complete medrol. Instructed in albuterol inhaler use. Aware to rinse mouth after use. Push fluids. Reviewed red flags; what would warrant rtc or ED for further eval. Nausea and vomiting 10/05/2018 11/03/19 19 Neuropathy 09/20/2018 06/26/2023 Assessment & Plan (09/10/2021 6:43 AM CDT): HPI: Condition is stable A&P: Discussed/ordered labs, encouraged healthy, low carbohydrate lifestyle and at least 150min/week of exercise, continue on pregabalin 75 mg 3 times daily and follow-up with Dr. Rodriugez podiatry Assessment & Plan (03/06/2021 6:44 AM MONITORING SPECIALIST): HPI: Condition is stable A&P: Discussed/ordered labs, encouraged healthy, low carbohydrate lifestyle and at least 150min/week of exercise, continue on pregabalin 75mg three times daily and f/u with DR. Rodriguez podiatry Assessment & Plan (12/20/2019 10:35 AM CDT): HPI: Condition is stable A&P: Discussed/ordered labs, encouraged healthy, low carbohydrate lifestyle and at least 150min/week of exercise, continue on Lyrica 75 mg 3 times daily. And follow-up with Dr. Rodriguez podiatry Assessment & Plan (08/09/2019 8:34 AM CDT): Pt sees Dr. Rodriguez (podiatry) for left foot neuropathy. She is taking lyrica 75mg 3 times daily. Condition is controlled. Assessment & Plan (03/04/2019 8:29 AM MONITORING SPECIALIST): Of left foot. She sees Dr. Rodriguez (podiatry), she is taking lyrica 75mg three times daily. Condition is controlled. Immunizations Immunization Administration Dates Next Due DTP / HiB 07/15/1995,07/15/1995 Hep B, Adolescent or Pediatric 06/16/1995,1995 Influenza, Quadrivalent, Spl it, Intramuscular 11/30/2014 Influenza, Quadrivalent, Spl it, Preservative Free, Intramuscular 01/08/2018 Influenza, Trivalent, Preser vative Free, Intramuscular 01/02/2012 Influenza, Unspecified 12/07/2023,2022,01/02/2021,12/19,11/29/2018,12/15/2016 OPV 07/16/1995 Pneumococcal Conjugate Pcv20 05/20/2021 Td, adsorbed 10/01/1987 Tdap 11/02/2018 ZOSTER Recombinant 09/10/2021,05/20/2021 Social History Tobacco Use Types Packs/Day Years Used Date Smoking Tobacco: Former Cigarettes 0.5 34.6 0 06/18/1987 - 01/15/2022 Vaping Smokeless Tobacco: Never Tobacco Cessation:Counseling Given: Yes Alcohol Use Standard Drinks/Week Comments Yes 0 (1 standard drink = 0.6 oz pur e alcohol) Social Humiliation, Afraid, Rape, and Kick questionnair e Answer Date Recorded Within the last year, have y ou been afraid of your partner or ex-partner? No 07/02/2023 Within the last year, have y ou been humiliated or emotionally abused in other ways by your partner or ex-partner? No Within the last year, have y ou been kicked, hit, slapped, or otherwise physically hurt by your partner or ex-partner? No 07/02/2023 Within the last year, have y ou been raped or forced to have any kind of sexual activity by your partner or ex-partner? No 07/02/2023 AUDIT-C Answer Date Recorded Q1: How often do you have a drink containing alcohol? Never 03/29/2024 Q2: How many drinks containi ng alcohol do you have on a typical day when you are drinking? Patient does not drink Q3: How often do you have si x or more drinks on one occasion? Never 03/29/2024 PHQ-2 Answer Date Recorded PHQ-2 Total Score (If total score is 3 or more points, staff should administer the PHQ-9) 0 03/29/2024 Personal Safety Answer Date Recorded Have you ever been in or are you currently in a harmful physical or emotional relationship or is someone making you feel afraid or unsafe? Denies 09/08/2022 Comments No Sex and Gender Information Value Date Recorded Sex Assigned at Not on file Legal Sex Female 1:03 PM MONITORING SPECIALIST Gender Identity Female 01/31/2021 8:44 AM MONITORING SPECIALIST Sexual Orientation Straight 07/12/2019 7: 32 AM CDT Last Filed Vital Signs Vital Sign Reading Time Taken Comments Blood Pressure 152/98 03/29/2024 2:25 PM MONITORING SPECIALIST Pulse 93 03/29/2024 2:00 PM MONITORING SPECIALIST Temperature 36.7 C (98.1 F) 03/29/2024 2:00 PM MONITORING SPECIALIST Respiratory Rate 16 03/29/2024 2:00 PM MONITORING SPECIALIST Oxygen Saturation 96% 03/29/2024 2:00 PM MONITORING SPECIALIST Inhaled Oxygen Concentration - - Weight 105.2 kg (231 lb 14.4 oz) 03/29/2024 2:00 PM MONITORING SPECIALIST Height 154.9 cm (5' 0.98 ) 03/29/2024 2:00 PM CS T Body Mass Index 43.84 03/29/2024 2:00 PM MONITORING SPECIALIST Plan of Treatment Not on file Procedures Procedure Name Priority Date/Time Associated Diagnosis Comments HEPATITIS C ANTIBODY Routine 03/26/2024 10:40 AM MONITORING SPECIALIST Encounter for hepatitis C screening test for low risk patient SCREENING MAMMOGRAM BILATERAL W LEO Schedule Routine, Read Routine (OP Routine) 08/19/2023 3:20 PM CDT Screening mammogram, encounter for PAP AND HPV, REFLEX TO HPV GENOTYPES Routine 07/02/2023 9:28 AM CDT Screening for cervical cancer COLONOSCOPY REPORT 06/02/2016 from Last 3 Months or Most Recently Relevant to Health Maintenance Results * Hepatitis C antibody Blood (03/26/2024 10:40 AM MONITORING SPECIALIST) Hep C Ab Nonreactive Nonreactive Comment: Interpretive Data Nonreactive: Antibodies to HCV not detected. Does NOT exclude the possibility of recent exposure to HCV. Equivocal: Equivocal for HCV antibodies. Supplemental molecular testing will be automatically performed to determine infection status in accordance with current CDC screening recommendations. Reactive: Positive for HCV antibodies. This may represent current or past HCV infection. Supplemental molecular testing will be automatically performed to determine current infection status in accordance with current CDC screening recommendations. Interpretive data was last revised on 2019. Testing performed by: [facility], [address] [place] [address], [place]., [address] Blood 03/26/2024 10:4 0 AM MONITORING SPECIALIST 03/26/2024 1:25 PM MONITORING SPECIALIST Esvin Ventura MD LAB MICROBIOLOGY - GENE RAL ORDERABLES Final Result [facility] (COPEMISH) 1 [facility] Department of Laboratories [place], [place] [id number] * Screening Mammogram Bilateral W Leo (08/19/2023 3:20 PM CDT) Anatomical Region Laterality Modality Breast Bilateral Mammography 08/19/2023 3:55 PM CDT Impressions 08/19/2023 3:55 PM CDT There is no mammographic evidence of malignancy. A 1 year screening mammogram is recommended. BI-RADS: 1 - Negative. The patient has been or will be contacted. The patient will be entered into a reminder system with a target due date of 1 year for her next mammogram. Electronically signed by: Wendy Islas M.D. Narrative 08/19/2023 3:55 PM CDT EXAMINATION: SCREENING MAMMOGRAM BILATERAL W LEO ORDERING HEALTHCARE PROVIDER: SELF SCREENING MAMMOGRAM HISTORY: Routine screening mammography. COMPARISON: 05/28/2022, 05/02/2021, 05/10/2019, 03/04/2018, 10/27/2015, 04/07/2014 TECHNIQUE: CC and MLO views of the bilateral breasts were obtained with digital technique using breast tomosynthesis with C view. Computer aided detection was utilized. FINDINGS: DENSITY: There are scattered fibroglandular elements in the bilateral breasts. BREASTS: There are no suspicious masses, suspicious calcifications, or other suspicious findings in either breast. There has been no suspicious interval change. us Self Screening Mammogram IMG MAMMO PROCEDURES Fi nal Result * Pap and HPV, reflex to HPV Genotypes (07/02/2023 9:28 AM CDT) CLINICAL INFORMATION: [facility] Comment:None given LMP [facility] Comment:NONE GIVEN Previous Pap [facility] Comment:NONE GIVEN Prev. Bx [facility] Comment:NONE GIVEN SOURCE: [facility] Comment:Cervix, Endocervix Pap, specimen adequacy [facility] Comment: Satisfactory for evaluation. Endocervical/transformation zone component absent. Age and/or menstrual status not provided HPV interp [facility] Comment: Cytology Results: Negative for intraepithelial lesion or malignancy. COMMENTS [facility] Comment: This Pap test has been evaluated with computer assisted technology. 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 Comment: MVB, CT(ASCP) CT Screening Location: [place] [address] [address] [place] [address] [facility] Comment: EXPLANATORY NOTE: The Pap is a screening test for cervical cancer. It is not a diagnostic test and is subject to false negative and false positive results. It is most reliable when a satisfactory sample, regularly obtained, is submitted with relevant clinical findings and history, and when the Pap result is evaluated along with historic and current clinical information. Human papillomavirus DNA, High Risk E6/E7 Not Detected NOT DETECTED Angel Conti /Tahmina GANN Comment: Not Detected High Risk HPV types (16,18,31,33,35,39,45,51,52, 56,58,59,66,68) were not detected. Other HPV types which cause anogenital lesions may be present. The significance of the other types of HPV in malignant processes has not been established. Methodology: Real Time PCR Thin prep 07/02/2023 9:28 AM CDT 07/03/2023 2:26 AM CDT us Anita Burrows NP LAB CYTOLOGY ORDERABLES Fin al Result [facility] [address] [place] [id number] Angel Conti/[place] [address] [facility] [place] [address] [place] [address] * COLONOSCOPY REPORT (06/02/2016) Anatomical Region Laterality Modality Other Narrative 06/02/2016 Ordered by an unspecified provider. 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 Relationship Specialty Start Date End Date Esvin Ventura MD [address] [place] [address] PCP - General Family Medicine 02/13/22 Deandre Vazquez Jr., MD [address] [place] [address] Surgeon Orthopedic Surgery 03/04/19 Neo Rodriguez DPM [facility] [place] [address] Consulting Physician Foot and Ankle Surg 03/04/19 Shadia Aguilar MD [address] [address] [address] [place] [address] Consulting Physician Obstetrics and Gynecology 03/04/19 Macarena Donald MD [address] [place] [address] DR [address] [place] [address] Consulting Physician Cardiology 05/20/21 Shaka Carey MD [address] [place] [id number] Consulting Physician Otolaryngology 05/01/23
--- OUTSIDE RECORDS SUMMARY | 2024-06-30 09:44 | XMS_ITS | Clinical Summary ---
Author Organization [facility] Address [address] [place] [address] Care Team Providers Care Marketing Director Assisted Living Name Role Phone Unavailable Primary Care Provider Unavailabl e Source Comments [facility],non-owned Affiliates and Associated Physician Practices is amultiple site organization consisting of ambulatory clinics and hospital sitesin [place], [place], [place] and [place]. This disclosure is being madepursuant to the Care Everywhere program and may not contain all information available regarding this patient. 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 Gender Identity Not on file Sexual Orientation Not on file Plan of Treatment Health Maintenance Due Date Last Done Comments COLOGUARD (AGES 45-75) - COL ON CA SCREENING 1970 COLON MONITORING 1970 COLONOSCOPY - COLON CA SCREENING 1970 CT COLONOGRAPHY - COLON CA SCREENING 1970 Colorectal Cancer Screening 1970 FIT - COLON CA SCREENING 1970 FLEX SIG - COLON CA SCREENING 1970 LIPID TESTING 1970 MAMMOGRAM 1970 HIV SCREENING 1985 HEPATITIS C SCREENING 06/12/1988 DTAP/TDAP/TD VACCINES (1 - Tdap) 1989 HEPATITIS B VACCINE (1 of 3 - 19+ 3-dose series) 1989 PNEUMOCOCCAL VACCINE 50+ (1 of 1 - PCV) 2020 ZOSTER VACCINE (1 of 2) 2020 COVID-19 VACCINE ( - 2023-2 5 season) 2023 DEPRESSION SCREENING 03/02/2024 INFLUENZA VACCINE (Season Ended) 2024 HIB VACCINE Aged Out No longer eligi ble based on patient's age to complete this topic HPV VACCINE Aged Out No longer eligi ble based on patient's age to complete this topic MENINGOCOCCAL (Group B) VACC INE SHARED DECISION-MAKING Aged Out No longer eligibl e based on patient's age to complete this topic MENINGOCOCCAL GROUPS A/C/Y/W VACCINE Aged Out No longer eligible b ased on patient's age to complete this topic
--- OUTSIDE RECORDS SUMMARY | 2024-06-30 09:44 | XMS_ITS | Clinical Summary ---
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 [employer] Name Role Phone Unavailable Primary Care Provider Unavailabl e Social History Tobacco Use Types Packs/Day Years Used Date Smoking Tobacco: Never Assessed Comments Unknown Sex and Gender Information Value Date Recorded Sex Assigned at Not on file Legal Sex Female 7:48 PM CDT Gender Identity Not on file Sexual Orientation Not on file Plan of Treatment Health Maintenance Due Date Last Done Comments Hepatitis C Virus (HCV) Screening 1970 TdaP Immunization 1970 Hepatitis B Immunization (1 of 3 - 19+ 3-dose series) 1989 Pap Smear 06/18/1991 Cervical Cancer Screening (CCS) 2000 HPV/Cotest 2000 Colonoscopy 06/18/2015 Colorectal Cancer Screening 06/18/2015 Cologuard 2020 Immunochemical Fecal Occult Blood 2020 Mammogram 2020 Pneumococcal Immunization (5 0+ years) (1 of 1 - PCV) 2020 Zoster Immunization (1 of 2) 2020 Influenza Immunization (#1) 2023 SARS-COV-2 Immunization ( - 2023- season) 2023 Respiratory Syncytial Virus (RSV) Immunization (Adult) (1 - 1-dose 75+ series) 2045 Meningococcal Immunization (ACWY) Aged Out No longer eligible based on patient's age to complete this topic Pneumococcal Immunization Combined Aged Out No longer eligible based on patient's age to complete this topic Rotavirus Immunization Aged Out No lo nger eligible based on patient's age to complete this topic
--- OUTSIDE RECORDS SUMMARY | 2024-06-30 09:45 | XMS_ITS | Clinical Summary ---
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 Name Role Phone George Harris MD, Deandre Styles Unavailable [phone] Neo RodriguezM Unavailable [phone] Shadia Aguilar MD Unavailable [phone] Macarena Donald MD Unavailable [phone] Esvin Ventura MD Primary Care Provider Shaka Carey MD Unavailable [phone] Allergies Active Allergy Reactions Criticality Noted Date Comments Hydrocodone Hives Reaction: Hives, Hydrocodone-Acetaminophen Oxycodone Hives,Itching Medium 05/13/2021 Medications cholecalciferol (VITAMIN D-3) 36611 unit tablet Take 1 tablet by mouth [...] 02/12/2023 Assessment & Plan (02/12/2023 1:33 PM AUTOMOTIVE GENERAL MANAGER): May try meclizine for vertigo. She also [...] post-menopausal Assessment & Plan (02/13/2022 12:29 PM AUTOMOTIVE GENERAL MANAGER): Patient has been noted to have fpc current use of NSAIDs. Discussed that NSAIDs [...] disease) Assessment & Plan (03/29/2024 2:14 PM AUTOMOTIVE GENERAL MANAGER): - chronic, well controlled - was chronic [...] predicted) Assessment & Plan (04/23/2023 8:23 AM AUTOMOTIVE GENERAL MANAGER): - chronic, much better since she has been on inhaler - was worse at night as well - was chronic smoker, has cut down on her smoking and switched to vaping, cutting down on vaping - using albuterol inhaler 2-3 times a day - currently Breo Elipta 100-25 daily with big improvement - seryann has been taking Zyrtec and flonase - [...] albuterol inhaler 2-3 times a day - [facility] has been taking Zyrtec and flonase - [...] placed Assessment & Plan (02/13/2022 12:32 PM AUTOMOTIVE GENERAL MANAGER): - chronic, improved - almost 6 months [...] enlarged lymph node or free fluid. MSK: Hczw-bc-mwlksubr disc disease and facet arthropathy. Hip and [...] LIVER.. Assessment & Plan (02/13/2022 12:49 PM AUTOMOTIVE GENERAL MANAGER): - chronic, note din past on 2017 - recheck, order placed for US Transvaginal - intermittent RLQ pain CT Abd/Pelvis 11/2017 IMPRESSION: 1. NO ACUTE INTRA-ABDOMINAL OR INTRAPELVIC ABNORMALITY. 2. 18 MM SIMPLE RIGHT OVARIAN CYST AND 15 MM SIMPLE LEFT OVARIAN CYST. 3. CHOLECYSTECTOMY. 4. FATTY INFILTRATION OF THE LIVER.. Fatty liver 02/13/2022 Assessment & Plan (04/23/2023 8:20 AM AUTOMOTIVE GENERAL MANAGER): - chronic, noted in past as shown [...] 10/05/2018 Assessment & Plan (02/13/2022 12:48 PM AUTOMOTIVE GENERAL MANAGER): - chronic, noted in past as shown [...] Resolved. Assessment & Plan (02/13/2022 12:35 PM AUTOMOTIVE GENERAL MANAGER): - chronic, intermittent - saw Cardiology and [...] 03/06/2021 Assessment & Plan (04/23/2023 8:22 AM AUTOMOTIVE GENERAL MANAGER): Social History Tobacco Use Smoking Status Former Current packs/day: 0.00 Average packs/day: 0.5 packs/day for 34.6 years (17.3 ttl pk-yrs) Types: Cigarettes, Vaping Start date: 06/18/1987 Quit date: 01/15/2022 Years since quittin.2 Smokeless Tobacco Never - chronic condition, not at goal - continue with abstinence from tobacco smoking - currently vapes Assessment & Plan (02/13/2022 12:21 PM AUTOMOTIVE GENERAL MANAGER): Social History Tobacco Use Smoking Status Every [...] day Assessment & Plan (03/06/2021 7:32 AM AUTOMOTIVE GENERAL MANAGER): Patient aware of risks of tobacco use [...] 60 Assessment & Plan (03/06/2021 7:36 AM AUTOMOTIVE GENERAL MANAGER): Encouraged tobacco cessation Keep bp under tight control Will start monitoring at age 60 Hypertension, essential 07/12/2019 Assessment & Plan (03/29/2024 2:56 PM AUTOMOTIVE GENERAL MANAGER): BP Readings from Last 3 Encounters: 03/29/24 [...] 02/12/2023 Assessment & Plan (04/23/2023 8:16 AM AUTOMOTIVE GENERAL MANAGER): BP Readings from Last 3 Encounters: 04/23/23 [...] 04/02/2022 Assessment & Plan (02/13/2022 11:48 AM AUTOMOTIVE GENERAL MANAGER): - chronic condition, stable status - currently [...] daily Assessment & Plan (03/06/2021 6:41 AM AUTOMOTIVE GENERAL MANAGER): HPI: Condition is stable A&P: Discussed/ordered labs, encouraged healthy, low carbohydrate lifestyle and at least 150min/week of exercise, continue on lisinopril/hctz 20/12.5mg daily Assessment & Plan (01/31/2021 1:09 PM AUTOMOTIVE GENERAL MANAGER): HPI: Condition is at goal A&P: Discussed/ordered [...] er. Pt stated understanding. Her is a mold insert changer and can help monitor her symptoms. She is to check bp daily and send in weekly numbers via [employer]. Vitamin D deficiency 05/02/2019 Assessment & Plan (09/10/2021 7:50 AM CDT): HPI: Condition is stable A&P: Discussed/ordered labs, encouraged healthy, low carbohydrate lifestyle and at least 150min/week of exercise, continue on vitamin D3 83430 units three times weekly Please try to get 15 min of unsunscreened time daily with as much skin showing as possible. Anything more than 15 min, please use sunscreen. Assessment & Plan (03/06/2021 6:42 AM AUTOMOTIVE GENERAL MANAGER): HPI: Condition is stable A&P: Discussed/ordered labs, encouraged healthy, low carbohydrate lifestyle and at least 150min/week of exercise, continue on vit d3 32474 units twice weekly Assessment & Plan (12/19/2019 12:22 PM CDT): HPI: Condition is stable A&P: Discussed/ordered labs, encouraged healthy, low carbohydrate lifestyle and at least 150min/week [place] exercise[place] [address] units twice weekly Assessment & Plan (08/09/2019 8:31 AM CDT): Discussed/ordered labs, Condition is improving, but not at goal encouraged healthy, low carbohydrate lifestyle and at least 150min/week of exercise, [place] d 31893 units but increase to twice weekly Assessment & Plan (07/29/2019 8:51 AM CDT): Discussed/ordered labs, Condition is worsening encouraged healthy, low carbohydrate lifestyle and at least 150min/week of exercise, continue taking vit d3 17866 units twice weekly, repeat in 3 mo. Assessment & Plan (07/12/2019 4:20 PM CDT): Discussed/ordered labs, Condition is stable encouraged healthy, low carbohydrate lifestyle and at least 150min/week of exercise, continue on max d3 weekly. Labs ordered today Assessment & Plan (05/02/2019 8:25 PM AUTOMOTIVE GENERAL MANAGER): Discussed/ordered labs, Condition is stable, not improving, [...] each month after that. This is a intermediate designer medication unless you move closer to the equator Please have pharmacy fill the script given, please do not purchase the over the counter vit d. I have had success with this brand of vit d as it is a regulated dose. Over the counter products are not as regulated and can give inconsistent results. Mixed hyperlipidemia 05/02/2019 Assessment & Plan (03/29/2024 2:12 PM AUTOMOTIVE GENERAL MANAGER): - chronic, worse - goal LDL <100 [...] 09/09/2021 Assessment & Plan (04/23/2023 8:19 AM AUTOMOTIVE GENERAL MANAGER): - chronic, better controlled - currently on [...] 01/31/2021 Assessment & Plan (02/13/2022 12:39 PM AUTOMOTIVE GENERAL MANAGER): - chronic, well controlled - currently on [...] daily Assessment & Plan (03/06/2021 7:25 AM AUTOMOTIVE GENERAL MANAGER): HPI: Condition is at goal A&P: Discussed/ordered labs, encouraged healthy, low carbohydrate lifestyle and at least 150min/week of exercise, continue on atorvastatin 40mg daily, keep pushing water Assessment & Plan (01/31/2021 1:10 PM AUTOMOTIVE GENERAL MANAGER): Stable, continue lipitor 40. Will recheck labs [...] today. Assessment & Plan (05/02/2019 8:26 PM AUTOMOTIVE GENERAL MANAGER): Discussed/ordered labs, Condition is new, encouraged healthy, [...] 03/04/2019 Assessment & Plan (03/29/2024 2:11 PM AUTOMOTIVE GENERAL MANAGER): - chronic condition, better controlled - has [...] 04/02/2022 Assessment & Plan (04/23/2023 8:22 AM AUTOMOTIVE GENERAL MANAGER): - chronic condition, controlled with persistent symptoms [...] 04/02/2022 Assessment & Plan (02/13/2022 12:30 PM AUTOMOTIVE GENERAL MANAGER): - chronic condition, controlled with persistent symptoms [...] anxiety Assessment & Plan (03/06/2021 7:27 AM AUTOMOTIVE GENERAL MANAGER): Patient reiterated no suicidal thoughts at this [...] week. Assessment & Plan (02/04/2021 12:12 PM AUTOMOTIVE GENERAL MANAGER): Stable. Needs refill on atarax. Follow up [...] hydroxyzine. Her recently got out of the [email or web address] business and took an early senior living and had been out of work since July. He just got a new job working as a tire shop mechanic at a [employer]. Assessment & Plan (08/09/2019 8:36 AM CDT): [...] recently. Her is getting out of the [employer] business and is taking an early senior living and taking a new job. Assessment & [...] week when her isn't home-he is a mold insert changer. She likes that dose and we will stay on the same plan. She still feels she is doing well on these meds. Assessment & Plan (05/02/2019 8:22 PM AUTOMOTIVE GENERAL MANAGER): Patient reiterated no suicidal thoughts at this [...] about twice a week. Her is a mold insert changer and she takes them more when he is gone to work. She uses the alprazolam for sleep. At last office visit, we stopped the prozac and started on lexapro 10mg daily, as this should help with the depression and anxiety. We stopped the alprazolam and switched to buspirone 10mg but it made her wired. We stopped it and switched to [id number]. Please consider this a rescue medication. If you are needing it multiple times a day, please contact my office. She is here today for a follow up visit. She says she is improving. She has used the hydroxyzine twice a week when her isn't home-he is a mold insert changer. She likes that dose and we will stay on the same plan. We will re-evaluate patient in 4-6 wks Assessment & Plan (03/04/2019 8:44 AM AUTOMOTIVE GENERAL MANAGER): Discussed/ordered labs, Condition is worsening, encouraged healthy, [...] 05/2019 Assessment & Plan (03/29/2024 2:05 PM AUTOMOTIVE GENERAL MANAGER): Wt Readings from Last 3 Encounters: 03/29/24 [...] hyperlipidemia Assessment & Plan (04/23/2023 8:15 AM AUTOMOTIVE GENERAL MANAGER): Wt Readings from Last 3 Encounters: 04/23/23 [...] education Assessment & Plan (02/13/2022 11:49 AM AUTOMOTIVE GENERAL MANAGER): Wt Readings from Last 3 Encounters: 11/18/21 [...] in your mouth on an grayson like [employer] Lower carb substitutions: [employer] carries a zero [...] in much longer they will become mushy [place] and/or coconut flour instead of regular flour [...] pork rinds For yogurt, try Two Good [place] islander yogurt Use Rajan for recipe ideas. Type [...] in your mouth on an grayson like [employer] or [employer] + [employer] carries a zero net carb bread [...] in much longer they will become mushy [place] and/or coconut flour instead of regular flour [...] pork rinds For yogurt, try Two Good [place] islander yogurt Use Rajan for recipe ideas. Type in low carb... Assessment & Plan (04/17/2021 1:01 PM AUTOMOTIVE GENERAL MANAGER): HPI: Condition is not at/near goal goal BMI <30 A&P: Healthy, high-protein, lower carbohydrate, lower fat lifestyle and exercise for 150min/week recommended Substitutions: Recommend tracking everything you put in your mouth on an grayson like [employer] or [employer] carries a zero net carb bread If [...] in much longer they will become mushy [place] and/or coconut flour instead of regular flour [...] pork rinds For yogurt, try Two Good [place] islander yogurt Use Pinterest for recipe ideas. Type in low carb... Assessment & Plan (03/06/2021 7:26 AM AUTOMOTIVE GENERAL MANAGER): HPI: Condition is not at/near goal goal BMI <30 A&P: Healthy, high-protein, lower carbohydrate, lower fat lifestyle and exercise for 150min/week recommended We will get pt scheduled with Christelle Brannon NP to do wt loss program Substitutions: Recommend tracking everything you put in your mouth on an grayson like [employer] or [employer] + [employer] carries a zero net carb bread [...] in much longer they will become mushy [place] and/or coconut flour instead of regular flour [...] pork rinds For yogurt, try Two Good [place] islander yogurt Use Pinterest for recipe ideas. Type in low carb... Assessment & Plan (01/31/2021 1:10 PM AUTOMOTIVE GENERAL MANAGER): HPI: Condition is not at/near goal A&P: [...] in much longer they will become mushy [place] and/or coconut flour instead of regular flour [...] ice cream, try the brand En[employer]ened Use Pinterest for recipe ideas. Type in low carb... Assessment & Plan (08/09/2019 8:35 AM CDT): Healthy, low carbohydrate lifestyle and exercise for 150min/week recommended Assessment & Plan (07/28/2019 5:16 PM CDT): Healthy, low carbohydrate lifestyle and exercise for 150min/week recommended Assessment & Plan (07/12/2019 4:20 PM CDT): Healthy, low carbohydrate lifestyle and exercise for 150min/week recommended Assessment & Plan (05/02/2019 8:22 PM AUTOMOTIVE GENERAL MANAGER): Healthy, low carbohydrate lifestyle and exercise for 150min/week recommended Assessment & Plan (03/04/2019 8:48 AM AUTOMOTIVE GENERAL MANAGER): Healthy, low carbohydrate lifestyle and exercise for [...] exercise Assessment & Plan (03/06/2021 6:43 AM AUTOMOTIVE GENERAL MANAGER): HPI: Condition is stable no recent flares [...] flares. Assessment & Plan (03/04/2019 8:27 AM AUTOMOTIVE GENERAL MANAGER): Last flare was a year ago. She [...] throat Assessment & Plan (03/06/2021 6:45 AM AUTOMOTIVE GENERAL MANAGER): Pt uses this for chronic back pain [...] exercise, Assessment & Plan (03/04/2019 8:30 AM AUTOMOTIVE GENERAL MANAGER): She uses this for chronic back pain and neuropathy She uses it as needed. She needs it after working because she is on her feet all day. Moderate episode of recurrent major depressive d isorder 11/04/2016 Assessment & Plan (03/29/2024 2:11 PM AUTOMOTIVE GENERAL MANAGER): - chronic condition, better controlled - has [...] 04/02/2022 Assessment & Plan (04/23/2023 8:22 AM AUTOMOTIVE GENERAL MANAGER): - chronic condition, controlled with persistent symptoms [...] 04/02/2022 Assessment & Plan (02/13/2022 12:31 PM AUTOMOTIVE GENERAL MANAGER): - chronic condition, controlled with persistent symptoms [...] on Assessment & Plan (03/06/2021 7:23 AM AUTOMOTIVE GENERAL MANAGER): Patient reiterated no suicidal thoughts at this [...] hydroxyzine. Her recently got out of the [email or web address] business and took an early senior living and had been out of work since July. He just got a new job working as a tire shop mechanic at a [employer]. Assessment & Plan (08/09/2019 8:29 AM CDT): [...] recently. Her is getting out of the [employer] business and is taking an early senior living and taking a new job. Assessment & [...] week when her isn't home-he is a mold insert changer. She likes that dose and we will stay on the same plan. She still feels she is doing well on these meds. Assessment & Plan (05/02/2019 8:22 PM AUTOMOTIVE GENERAL MANAGER): Patient reiterated no suicidal thoughts at this [...] about twice a week. Her is a mold insert changer and she takes them more when he is gone to work. She uses the alprazolam for sleep. At last office visit, we stopped the prozac and started on lexapro 10mg daily, as this should help with the depression and anxiety. We stopped the alprazolam and switched to buspirone 10mg but it made her wired. We stopped it and switched to [id number]. Please consider this a rescue medication. If you are needing it multiple times a day, please contact my office. She is here today for a follow up visit. She says she is improving. She has used the hydroxyzine twice a week when her isn't home-he is a mold insert changer. She likes that dose and we will stay on the same plan. We will re-evaluate patient in 4-6 wks Assessment & Plan (03/04/2019 8:45 AM AUTOMOTIVE GENERAL MANAGER): Patient reiterated no suicidal thoughts at this [...] about twice a week. Her is a mold insert changer and she takes them more when he [...] only Assessment & Plan (03/29/2024 2:16 PM AUTOMOTIVE GENERAL MANAGER): - chronic, better controlled - used to follow with Dr. Vazquez - most recent MRI as shown below - was on meloxicam 15 mg fpc, discussed risk of intermediate designer NSAID use and no longer on that medication - also on Cyclobenzaprine 10 mg daily as needed - states has had injections into her back before x6 she did not like it - pain management in [place], also had a back brace - currently [...] below - was on meloxicam 15 mg fpc, discussed risk of fpc NSAID use - also on Cyclobenzaprine 10 mg daily as needed - states has had injections into her back before x6 she did not like it - pain management in [place], also had a back brace - currently [...] below - was on meloxicam 15 mg fpc, discussed risk of fpc NSAID use - also on Cyclobenzaprine 10 mg daily as needed - states has had injections into her back before x6 she did not like it - pain management in [place], also had a back brace - currently [...] seen. Assessment & Plan (04/23/2023 8:32 AM AUTOMOTIVE GENERAL MANAGER): - chronic, not at goal - used to follow with Dr. Vazquez - was on meloxicam 15 mg intermediate designer, discussed risk of fpc NSAID use - also on Cyclobenzaprine 10 mg daily as needed which has not been as effective as it should - will look into it more in future visits - states has had injections into her back before x6 she did not like it - pain management in [place], also had a back brace - start [...] Dr. Vazquez - on meloxicam 15 mg fpc, discussed risk of intermediate designer NSAID use - also on Cyclobenzaprine 10 [...] seen. Assessment & Plan (02/13/2022 12:52 PM AUTOMOTIVE GENERAL MANAGER): - chronic, not at goal - follows with Dr. Vazquez - on meloxicam 15 mg fpc, discussed risk of intermediate designer NSAID use - will look into it [...] needed Assessment & Plan (03/06/2021 6:47 AM AUTOMOTIVE GENERAL MANAGER): HPI: Condition is stable A&P: Discussed/ordered labs, [...] worsening. Pt is seeing Dr. Vazquez ([place]). encouraged healthy, low carbohydrate lifestyle and at least 150min/week of exercise Assessment & Plan (05/02/2019 8:24 PM AUTOMOTIVE GENERAL MANAGER): Condition is worsening. Pt is seeing Dr. Vazquez ([place]). She recently had steroid injection but it did not work. She is going to contact his office for further treatment plan. encouraged healthy, low carbohydrate lifestyle and at least 150min/week of exercise Assessment & Plan (03/04/2019 8:23 AM AUTOMOTIVE GENERAL MANAGER): Discussed/ordered labs, Condition is stable, encouraged healthy, low carbohydrate lifestyle and at least 150min/week of exercise, continue seeing Dr. Vazquez (ortho), he has her on meloxicam 10mg daily, [...] or bologna; no MSG as found in gibraltarian food; no more than 1/2 banana a [...] or bologna; no MSG as found in gibraltarian food; no more than 1/2 banana a [...] headaches. Assessment & Plan (03/06/2021 7:29 AM AUTOMOTIVE GENERAL MANAGER): HPI: Condition is stable A&P: Discussed/ordered labs, encouraged healthy, low carbohydrate lifestyle and at least 150min/week of exercise, continue on meloxicam 10mg daily, tylenol as needed, goes into a dark room. Discussed avoiding all caffeine: no soda, tea, coffee, chocolate; no wine; no sharp cheeses; no processed meats like hot dogs or bologna; no MSG as found in gibraltarian food; no more than 1/2 banana a [...] them. Assessment & Plan (03/04/2019 8:25 AM AUTOMOTIVE GENERAL MANAGER): Discussed/ordered labs, Condition is improving, encouraged healthy, [...] hot dogs, no MSG as found in gibraltarian food, no more than 1/2 banana a [...] 3 times daily and follow-up with Dr. Rodriguez podiatry Assessment & Plan (03/06/2021 6:44 AM AUTOMOTIVE GENERAL MANAGER): HPI: Condition is stable A&P: Discussed/ordered labs, [...] controlled. Assessment & Plan (03/04/2019 8:29 AM AUTOMOTIVE GENERAL MANAGER): Of left foot. She sees Dr. Rodriguez (podiatry), she is taking lyrica 75mg three times daily. Condition is controlled. Encounters Date Type Department Care Team Description 06/10/2024 Telephone [facility] Primary Care at [address] [address] Esvin Ventura MD PA for Tramadol from Last 3 Months Immunizations Immunization Administration Dates Next Due DTP / HiB 07/15/1995,07/15/1995 Hep B, Adolescent or Pediatric 06/16/1995,1995 Influenza, Quadrivalent, Spl it, Intramuscular 11/30/2014 Influenza, Quadrivalent, Spl it, Preservative Free, Intramuscular 01/08/2018 Influenza, Trivalent, Preser vative Free, Intramuscular 01/02/2012 Influenza, Unspecified 12/07/2023,2022,01/02/2021,12/19,11/29/2018,12/15/2016 OPV 07/16/1995 Pneumococcal Conjugate Pcv20 05/20/2021 Td, adsorbed 10/01/1987 Tdap 11/02/2018 ZOSTER Recombinant 09/10/2021,05/20/2021 Surgical History Surgery Date Site/Laterality Comments CHOLECYSTECTOMY 03/02/1993 - 03/01/1994 Cholecystectomy ABLATION 08/27/2016 Uterine Ablation REDUCTION MAMMAPLASTY SECTION 1992 TUBAL LIGATION 1995 Medical History Medical History Date Comments Hx Other Medical 2001 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 Diverticulitis Smoking Migraine headache Syncope 1989 neg holter, echo Palpitations Dizziness Hypertension Hyperlipidemia Anxiety Arthritis Depression Neuromuscular disorder (HCC) Family History Medical History Relation Name Comments Breast cancer Father's Sister Abdominal Aortic Aneurysm Maternal Grandfather Alzheimer's disease Maternal Grandmother Mami Scherer Abdominal Aortic Aneurysm Mother Flor [place] Heart disease Mother Flor [place] Hyperlipidemia Mother Flor [place] Hypertension Mother Flor [place] Stroke Mother Flor [place] Stroke; Diabetes type II Other 1 Family hist ory of Diabetes -Type 2; Hypertension Other 2 Family history of Hypertension; Stroke Other 3 Family history of Stroke; Diabetes Paternal Grandfather Roby Rowan Diabe moises mellitus; Breast cancer Paternal cousin Other cancer Neg Hx no breast, president, or colon cancer Relation Name Status Comments Father Father's Sister Maternal Grandfather Maternal Grandmother Mami Scherer Mother Flor [place] Alive 4 bypass surgeries Other 1 Other 2 Other 3 Paternal Grandfather Roby Rowan Paternal cousin Social History Tobacco Use Types Packs/Day Years [...] on file Legal Sex Female 1:03 PM AUTOMOTIVE GENERAL MANAGER Gender Identity Female 01/31/2021 8:44 AM AUTOMOTIVE GENERAL MANAGER Sexual Orientation Straight 07/12/2019 7: 32 AM CDT Obstetrics History Para Term AB IAB SAB Ectopic Multiple Livin g Live Births 2 2 2 2 2 Date Outcome GA Total Labor Labor/2nd/3rd Weight Sex Type Anes PTL Stephanie A1 A5 Name Clin Term Term Last Filed Vital Signs Vital Sign Reading Time Taken Comments Blood Pressure 152/98 03/29/2024 2:25 PM AUTOMOTIVE GENERAL MANAGER Pulse 93 03/29/2024 2:00 PM AUTOMOTIVE GENERAL MANAGER Temperature 36.7 C (98.1 F) 03/29/2024 2:00 PM AUTOMOTIVE GENERAL MANAGER Respiratory Rate 16 03/29/2024 2:00 PM AUTOMOTIVE GENERAL MANAGER Oxygen Saturation 96% 03/29/2024 2:00 PM AUTOMOTIVE GENERAL MANAGER Inhaled Oxygen Concentration - - Weight 105.2 kg (231 lb 14.4 oz) 03/29/2024 2:00 PM AUTOMOTIVE GENERAL MANAGER Height 154.9 cm (5' 0.98 ) 03/29/2024 2:00 PM CS T Body Mass Index 43.84 03/29/2024 2:00 PM AUTOMOTIVE GENERAL MANAGER Plan of Treatment Health Maintenance Due Date Last Done Comments Covid-19 Vaccine (2023-2 5 season) 2023 10/09/2020, 09/11/2020 Cervical Cancer Screening 07/01/2024 07/02/2023, Regular Well Visit/Exam 18-64 07/01/2024, 09/16/2022, 11/19/2018 Breast Cancer Screening-Mammogram 08/18/2024 08/19/2023, 05/28/2022, 05/02/2021, Additional history exists Depression Screening 03/29/2025 03/29/2024, 10/26/2023, 07/02/2023, Additional history exists Colon Cancer Screening-Colonoscopy 06/02/20262016 DTaP/Tdap/Td Vaccine (4 - Td or Tdap) 11/02/2028 11/02/2018, 07/15/1995, 07/15/1995, Additional history exists Pneumococcal vaccine <65 Completed 05/20/2021 Zoster Vaccine Completed 09/10/2021, 05/20/2021 Influenza Vaccine Completed 12/07/2023, , 01/02/2021, Additional history exists Hepatitis C Screening Completed 03/26/2024 Procedures Procedure Name Priority Date/Time Associated Diagnosis Comments HEPATITIS C ANTIBODY Routine 03/26/2024 10:40 AM AUTOMOTIVE GENERAL MANAGER Encounter for hepatitis C screening test for [...] Hepatitis C antibody Blood (03/26/2024 10:40 AM AUTOMOTIVE GENERAL MANAGER) Hep C Ab Nonreactive Nonreactive Comment: Interpretive [...] last revised on 2019. Testing performed by: [facility], [address] [place] [address], [place]., [address] Blood 03/26/2024 10:4 0 AM AUTOMOTIVE GENERAL MANAGER 03/26/2024 1:25 PM AUTOMOTIVE GENERAL MANAGER Esvin Ventura MD LAB MICROBIOLOGY - [facility] ORDERABLES Final Result Performing Organization Address City/State/[facility] [place] Co de Phone Number [facility] Department [place] [address] * Screening Mammogram Bilateral W Leo (08/19/2023 [...] Genotypes (07/02/2023 9:28 AM CDT) CLINICAL INFORMATION: [facility] Comment:None given LMP [facility] Comment:NONE GIVEN Previous Pap [facility] Comment:NONE GIVEN Prev. Bx [facility] Comment:NONE GIVEN SOURCE: [facility] Comment:Cervix, Endocervix Pap, specimen adequacy [facility] Comment: Satisfactory for evaluation. Endocervical/transformation zone component absent. Age and/or menstrual status not provided HPV interp [facility] Comment: Cytology Results: Negative for intraepithelial lesion or malignancy. COMMENTS [facility] Comment: This Pap test has been evaluated with computer assisted technology. 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 [address] Comment [facility] Comment: EXPLANATORY NOTE: The Pap is [...] High Risk E6/E7 Not Detected NOT DETECTED [facility] Comment: Not Detected High Risk HPV types (16,18,31,33,35,39,45,51,52, 56,58,59,66,68) were not detected. Other HPV types which cause anogenital lesions may be present. The significance of the other types of HPV in malignant processes has not been established. Methodology: Real Time PCR Thin prep 07/02/2023 9:28 AM CDT 07/03/2023 2:26 AM CDT Anita Burrows WRAPPING CHECKER LAB CYTOLOGY ORDERABLES Fin al Result [facility] [address] [place] [address] [facility]/[place]ér[place] [address] [facility] [place] [address] * COLONOSCOPY REPORT (06/02/2016) Anatomical Region Laterality Modality Other Narrative 06/02/2016 Ordered by an unspecified provider. us Historical Provider GI PROCEDURE ORDERABLES F inal Result from Last 3 Months or Most Recently Relevant to Health Maintenance [facility] Member Subscriber Plan / Payer (Ef fective 2017-Present) Name:Layo Peres Member ID:[id number] Relation to Subscriber:Self Name:LAYO PERES Subscriber ID:[id number] Payer ID:[id number] Type:[employer] HMO/PPO Address: [facility] [id number] [address] [facility] [facility] [address] Member Subscriber Plan / Payer (Ef fective 2021-Present) Name:Layo Peres Member ID:[id number] Relation to Subscriber:Self Name:Layo Peres Subscriber ID:[id number] Payer ID:[id number] Type:[employer] HMO/PPO Address: [address] [facility] [address] [place] [address] Care Teams 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 Relationship Specialty Start Date End Date Esvin Ventura MD [address] [facility] [address] J[address]SON [address] [place] [id number] PCP - General Family Medicine 02/13/22 Deandre Vazquez Jr., MD [address] [place] [address] Surgeon Orthopedic Surgery 03/04/19 Neo Rodriguez DPM [address] [place] [address] Consulting Physician Foot and Ankle Surg 03/04/19 Shadia Aguilar MD [address] [place] [address] DR JACKSON [address] [place] [address] Consulting Physician Obstetrics and Gynecology 03/04/19 Macarena Donald MD [address] [place] [address] DR JACKSON [address] [place] [address] Consulting Physician Cardiology 05/20/21 Shaka Carey MD [facility] [place] [address] Consulting Physician Otolaryngology 05/01/23
[2024-06-30 09:48] LABS: Troponin I < 0.012 ng/mL (0.000-0.034)
[2024-06-30 10:00] VITALS: BP 135/82; PULSE 83; RESP 14; O2SAT 98
[2024-06-30 10:30] VITALS: BP 130/84; PULSE 82; RESP 12; O2SAT 95
[2024-06-30 10:33] LABS: NT Pro B Type Natriuretic Pept 63 pg/mL (19.9-100)
--- NOTE | 2024-06-30 11:25 | ECG_ITS ---
Test Date: 2024-06-30 11:46:41 Measurements Intervals [place] Rate: 83 P: 37 OR: 166 QRS: -4 QRSD: 78 T: 49 QT: 373 QTc: 439 Interpretive Statements SINUS RHYTHM POSSIBLE LEFT ATRIAL ENLARGEMENT [-0.1mV P WAVE IN V1/V2] Compared to ECG 06/30/2024 09:07:04 T-wave abnormality no longer present Electronically Signed On 07-01-2024 18:58:12 CDT by Nina Villalobos
[2024-06-30] MEDS: MORPHINE SULFATE (*CRX) 4 MG/ML INJ IV PUSH (11:38)
[2024-06-30] MEDS: ONDANSETRON INJ 4 MG/2 ML VIAL IV PUSH (11:39)
[2024-06-30 12:22] LABS: Troponin I < 0.012 ng/mL (0.000-0.034)
[2024-06-30 13:15] VITALS: BP 105/70; PULSE 81; RESP 20; O2SAT 95
== END 2024-06-30 13:17 | disposition home or self-care (01) ==
PROVIDERS: Emergency Provider Physician Assistant
DX: R07.89 Other chest pain (principal); I10 Essential (primary) hypertension; E78.5 Hyperlipidemia, unspecified; R94.31 Abnormal electrocardiogram [ECG] [EKG]
CPT/HCPCS: 36415; 71046; 80053; 83690; 83880; 84484; 85025; 85380; 85610; 85730; 93005; 96374; 96375; 99284; A9270; J2270; J2405